=== PATIENT | male | born 1990 | race African-American/Black ===

== ENCOUNTER 2020-07-30 21:14 | Emergency (ER) | payer SELFPAY ==
[2020-07-30 22:43] LABS: Absolute Lymphocytes (CBC) 3.5 K/uL (0.7-4.9); Basophils % 0.7 % (0-1.3); Hematocrit 38.6 % (39.6-49.0); Lymphocytes % 40.7 % (15.3-44.8); MPV 8.5 fL (7.6-11.3); RBC Red Blood Cell Count 5.08 M/uL (4.33-5.43)
[2020-07-30 22:44] LABS: Protime INR 1.04
[2020-07-30 22:52] LABS: Barbiturates NEGATIVE (NEGATIVE); Benzodiazepines NEGATIVE (NEGATIVE); Cocaine NEGATIVE (NEGATIVE); METHAMPHETAM NEGATIVE (NEGATIVE); Methadone NEGATIVE (NEGATIVE); Opiates NEGATIVE (NEGATIVE); Phencyclidine NEGATIVE (NEGATIVE); THC Cannibis NEGATIVE (NEGATIVE)
[2020-07-30 22:55] LABS: ALT/SGPT 41 U/L (12-78); AST/SGOT 16 U/L (15-37); Albumin 3.6 g/dL (3.4-5.0); Alkaline Phosphatase 67 U/L (45-117); BUN Blood Urea Nitrogen 11 mg/dL (7-18); Bicarbonate 29 mmol/L (21-32); Bilirubin Direct < 0.1 mg/dL (0-0.2); Bilirubin Total 0.2 mg/dL (0.2-1.0); Glucose Level 86 mg/dL (74-106); Potassium 3.9 mmol/L (3.5-5.1); Protein, Total 7.7 g/dL (6.4-8.2); Sodium Level 142 mmol/L (136-145); Troponin (Emerg Dept Use Only) < 0.02 ng/mL (0.0-0.045)
--- NOTE | 2020-07-30 23:56 | EDPHYS ---
Physician Documentation [facility] Brian Name: Gal Lam Age: 30 yrs Sex: Male : 1990 Arrival Date: 07/30/2020 Time: 21:17 Bed 13 Private MD: ED Physician Ana Paula Jaimes HPI: 07/30 21:55 This 30 yrs old Black Male presents to ER via Ambulatory with complaints of High Blood cp Pressure. 21:55 The patient has elevated blood pressure and discovered this at home, with a home device.cp 21:55 Onset: The symptoms/episode began/occurred 2 day(s) ago. cp 21:55 Associated signs and symptoms: Pertinent positives: right side chest pain, Pertinent cp negatives: dizziness, headache, visual changes, vomiting, weakness. 21:55 Severity of symptoms: in the emergency department the blood pressure is improved, cp moderately. Patient reports taking 's blood pressure medication prior to arrival. Historical: - Allergies: 21:27 No Known Allergies; jb4 - Home Meds: 21:27 None [Active]; jb4 - PMHx: 21:27 None; jb4 - PSHx: 21:27 None; jb4 - Immunization history:: Adult Immunizations not up to date. - Social history:: Smoking status: Patient denies any tobacco usage or history of. Patient uses alcohol, occasionally. Patient/guardian denies using street drugs. ROS: 22:00 Constitutional: Negative for body aches, chills, fever, poor PO intake. cp 22:00 Eyes: Negative for injury, pain, redness, and discharge. cp 22:00 Cardiovascular: Positive for chest pain, of the right side chest, Negative for edema, cp palpitations. 22:00 Respiratory: Negative for cough, shortness of breath, wheezing. cp 22:00 Abdomen/GI: Negative for abdominal pain, nausea, vomiting, and diarrhea. 22:00 Back: Negative for pain at rest, pain with movement, radiated pain. 22:00 Neuro: Negative for altered mental status, dizziness, headache, syncope, weakness. 22:00 All other systems are negative. Exam: 22:05 Constitutional: The patient appears in no acute distress, alert, awake, cp non-diaphoretic, non-toxic, well developed, well nourished, obese. 22:05 Head/Face: Normocephalic, atraumatic. cp 22:05 Eyes: Periorbital structures: appear normal, Conjunctiva: normal, no exudate, no injection, Sclera: no appreciated abnormality, Lids and lashes: appear normal, bilaterally. 22:05 ENT: External ear(s): are unremarkable, Nose: is normal, Mouth: Lips: moist, Oral mucosa: pink and intact, moist, Posterior pharynx: is normal, airway is patent, no erythema, no exudate. 22:05 Neck: ROM/movement: is normal, is supple, without pain, no range of motions limitations. 22:05 Chest/axilla: Inspection: normal, Palpation: is normal, no crepitus, no tenderness. 22:05 Cardiovascular: Rate: normal, Rhythm: regular, Heart sounds: murmur, not appreciated, Edema: is not appreciated, JVD: is not appreciated. 22:05 Respiratory: the patient does not display signs of respiratory distress, Respirations: normal, no use of accessory muscles, no retractions, labored breathing, is not present, Breath sounds: are clear throughout, no decreased breath sounds, no stridor, no wheezing. 22:05 Abdomen/GI: Inspection: abdomen appears normal, Palpation: abdomen is soft and non-tender, in all quadrants. 22:05 Back: pain, is absent, ROM is normal. 22:05 Neuro: Orientation: to person, place \T\ time. Mentation: is normal, Cerebellar function: is grossly normal, Motor: moves all fours, strength is normal, Sensation: is normal. 22:07 ECG was reviewed by the Attending Physician. cp Vital Signs: 21:22 BP 143 / 69; Pulse 85; Resp 16; Temp 99.0(TE); Pulse Ox 99% on R/A; Weight 122.47 kg jb4 (R); Height 5 ft. 8 in. (172.72 cm); Pain 5/10; 21:46 BP 133 / 84; Pulse 89; Resp 16; Pulse Ox 98% ; sf 22:00 BP 122 / 78; Pulse 78; Resp 16; Pulse Ox 97% ; sf 22:30 BP 124 / 86; Pulse 83; Resp 16; Pulse Ox 96% ; sf 07/31 00:33 BP 128 / 84; Pulse 75; Resp 16; Pulse Ox 96% ; sf 07/30 21:22 Body Mass Index 41.05 (122.47 kg, 172.72 cm) jb4 MDM: 07/30 21:48 Patient medically screened. cp 22:00 Differential diagnosis: hypertensive crisis, Malignant HTN, CVA, intracerebral cp hemorrhage, acute IA, cardiac arrythmia, kidney disease. 23:54 Data reviewed: vital signs, nurses notes, lab test result(s), EKG, radiologic studies, cp plain films. 23:54 Test interpretation: by ED physician or midlevel provider: ECG, plain radiologic cp studies, chest xray negative for infiltrates. Counseling: I had a detailed discussion with the patient and/or guardian regarding: the historical points, exam findings, and any diagnostic results supporting the discharge/admit diagnosis, the presence of at least one elevated blood pressure reading (>120/80) during this emergency department visit, lab results, radiology results, the need for outpatient follow up, for definitive care, a family practitioner. Response to treatment: VSS. Blood pressure improved. Will discharge to home for continued monitoring. 07/30 21:49 Order name: Basic Metabolic Panel cp 07/30 21:49 Order name: CBC with Diff cp 07/30 21:49 Order name: LFT's cp 07/30 21:49 Order name: Magnesium; Complete Time: 23:14 cp 07/30 21:49 Order name: PT-INR; Complete Time: 23:14 cp 07/30 21:49 Order name: Troponin (emerg Dept Use Only); Complete Time: 23:14 cp 07/30 23:42 Interpretation: Within normal limits: TROPED < 0.02. cp 07/30 21:49 Order name: XRAY Chest (1 view) cp 07/30 21:49 Order name: EKG; Complete Time: 21:50 cp 07/30 21:49 Order name: Cardiac monitoring; Complete Time: 22:21 cp 07/30 21:49 Order name: UDS; Complete Time: 23:14 cp 07/30 21:50 Order name: Basic Metabolic Panel; Complete Time: 23:14 EDMS 07/30 23:14 Interpretation: Reviewed. cp 07/30 21:50 Order name: CBC with Automated Diff; Complete Time: 23:14 EDMS 07/30 23:14 Interpretation: Normal except: HGB 12.7; HCT 38.6; MCV 75.9; MCH 25.0. cp 07/30 21:50 Order name: Liver (Hepatic) Function; Complete Time: 23:14 EDMS 07/30 23:14 Interpretation: Normal except: GLOB 4.1; A/G 0.9. cp 07/30 22:36 Order name: Urine Dipstick--Ancillary (enter results) tt3 07/30 21:49 Order name: EKG - Nurse/Tech; Complete Time: 22:05 cp 07/30 21:49 Order name: IV Saline Lock; Complete Time: 22:14 cp 07/30 21:49 Order name: Labs collected and sent; Complete Time: 22:14 cp 07/30 21:49 Order name: O2 Per Protocol; Complete Time: 22:21 cp 07/30 21:49 Order name: O2 Sat Monitoring; Complete Time: 22:21 cp 07/30 21:49 Order name: Urine Dipstick-Ancillary (obtain specimen); Complete Time: 22:36 cp EC:07 Rate is 80 beats/min. Rhythm is regular. WA interval is normal. QRS interval is normal. cp QT interval is normal. T waves are Inverted in leads III, aVR. Interpreted by me. Reviewed by me. Administered Medications: No medications were administered Disposition: 07/31 04:27 Co-signature as Attending Physician, Ana Paula Jaimes MD. ma2 Disposition: 07/30/20 23:55 Discharged to Home. Impression: Elevated blood-pressure reading, without diagnosis of hypertension, Other chest pain. - Condition is Stable. - Discharge Instructions: Nonspecific Chest Pain, How to Take Your Blood Pressure, [id number]-io-[id number], Aspirin and Your Heart, Form - Blood Pressure Record Sheet. - Medication Reconciliation Form, Thank You Letter, Antibiotic Education, Prescription Opioid Use form. - Follow up: Private Physician; When: 1 - 2 days; Reason: Recheck today's complaints. - Problem is new. - Symptoms have improved. Signatures: Dispatcher [employer] EDMN Quincy Patel PA PA cp Bryson, James, RN RN jb4 Ana Paula Jaimes MD MD ma2 Anup Arroyo RN RN sf Corrections: (The following items were deleted from the chart) 07/30 22:28 21:50 This 30 yrs old Black Male presents to ER via Ambulatory with complaints of High cp Blood Pressure. cp 22:28 21:50 The patient has elevated blood pressure and discovered this at home, with a home cp device, cp 07/31 00:35 07/30 23:55 07/30/2020 23:55 Discharged to Home. Impression: Elevated blood-pressure sf reading, without diagnosis of hypertension; Other chest pain. Condition is Stable. Forms are Medication Reconciliation Form, Thank You Letter, Antibiotic Education, Prescription Opioid Use. Follow up: Private Physician; When: 1 - 2 days; Reason: Recheck today's complaints. Problem is new. Symptoms have improved. cp
--- NOTE | 2020-07-30 23:56 | ER ---
Nurse's Notes [facility] Brian Name: Gal Lam Age: 30 yrs Sex: Male : 1990 Arrival Date: 07/30/2020 Time: 21:17 Bed 13 Private MD: Diagnosis: Elevated blood-pressure reading, without diagnosis of hypertension;Other chest pain Presentation: 07/30 21:22 Chief complaint: Patient states: My blood pressure was high 2 days ago. It has been jb4 going up and down. My gave me one of her pills to help and it went down but is back up. It is getting out of control, and i noticed the right side of my chest has been hurting. Coronavirus screen: Client denies travel out of the [place] in the last 14 days. At this time, the client does not indicate any symptoms associated with coronavirus-19. Ebola Screen: Patient negative for fever greater than or equal to 101.5 degrees Fahrenheit, and additional compatible Ebola Virus Disease symptoms. Initial Sepsis Screen: Does the patient meet any 2 criteria? No. Patient's initial sepsis screen is negative. Does the patient have a suspected source of infection? No. Patient's initial sepsis screen is negative. Risk Assessment: Do you want to hurt yourself or someone else? Patient reports no desire to harm self or others. Onset of symptoms was July 28, 2020. Transition of care: patient was not received from another setting of care. 21:22 Method Of Arrival: Ambulatory jb4 21:22 Acuity: ALEXANDRO 3 jb4 Historical: - Allergies: 21:27 No Known Allergies; jb4 - Home Meds: 21:27 None [Active]; jb4 - PMHx: 21:27 None; jb4 - PSHx: 21:27 None; jb4 - Immunization history:: Adult Immunizations not up to date. - Social history:: Smoking status: Patient denies any tobacco usage or history of. Patient uses alcohol, occasionally. Patient/guardian denies using street drugs. Screenin:46 Abuse screen: Denies threats or abuse. Denies injuries from another. Nutritional sf screening: No deficits noted. Tuberculosis screening: No symptoms or risk factors identified. Never had TB. Possible symptoms: None Risk factors: None. Fall Risk None identified. No fall in past 12 months (0 pts). No secondary diagnosis (0 pts). Ambulatory Aid- None/Bed Rest/Nurse Assist (0 pts). Gait- Normal/Bed Rest/Wheelchair (0 pts) Mental Status- Oriented to own ability (0 pts). Total Jones Fall Scale indicates No Risk (0-24 pts). Assessment: 21:44 General: Appears in no apparent distress. comfortable, Behavior is calm, cooperative, sf appropriate for age, Denies feeling ill. Pain: Pain currently is 4 out of 10 on a pain scale. Neuro: No deficits noted. Level of Consciousness is awake, alert, obeys commands, Oriented to person, place, time, situation, Appropriate for age Denies weakness blurred vision dizziness, headache. Cardiovascular: Reports chest pain, intermittently Patient's skin is warm and dry. Respiratory: No deficits noted. Airway is patent Respiratory effort is even, unlabored, Respiratory pattern is regular, symmetrical. 23:23 Reassessment: Patient appears in no apparent distress at this time. No changes from sf previously documented assessment. Patient and/or family updated on plan of care and expected duration. Pain level reassessed. Patient is alert, oriented x 3, equal unlabored respirations, skin warm/dry/pink. Vital Signs: 21:22 BP 143 / 69; Pulse 85; Resp 16; Temp 99.0(TE); Pulse Ox 99% on R/A; Weight 122.47 kg jb4 (R); Height 5 ft. 8 in. (172.72 cm); Pain 5/10; 21:46 BP 133 / 84; Pulse 89; Resp 16; Pulse Ox 98% ; sf 22:00 BP 122 / 78; Pulse 78; Resp 16; Pulse Ox 97% ; sf 22:30 BP 124 / 86; Pulse 83; Resp 16; Pulse Ox 96% ; sf 07/31 00:33 BP 128 / 84; Pulse 75; Resp 16; Pulse Ox 96% ; sf 07/30 21:22 Body Mass Index 41.05 (122.47 kg, 172.72 cm) jb4 ED Course: 07/30 21:17 Patient arrived in ED. am4 21:26 Triage completed. jb4 21:27 Arm band placed on right wrist. jb4 21:31 Quincy Patel PA is PHCP. cp 21:31 Ana Paula Jaimes MD is Attending Physician. cp 21:39 Anup Arroyo, RN is Primary Nurse. sf 21:47 Patient has correct armband on for positive identification. Bed in low position. Call sf light in reach. Side rails up X 1. Pulse ox on. NIBP on. Door closed. Noise minimized. Lights dimmed. Verbal reassurance given. 22:02 EKG done, by ED staff. sf 22:05 Initial lab(s) drawn, by in, sent to lab. Inserted saline lock: 20 gauge in left em antecubital area, using aseptic technique. Blood collected. 22:14 XRAY Chest (1 view) In Process Unspecified. EDMS 22:25 Urine collected: clean catch specimen, clear. sf 23:20 Basic Metabolic Panel Sent. sf 23:20 CBC with Diff Sent. sf 23:20 LFT's Sent. sf 07/31 00:34 No provider procedures requiring assistance completed. IV discontinued, intact, sf bleeding controlled, No redness/swelling at site. Pressure dressing applied. Administered Medications: No medications were administered Outcome: 07/30 23:55 Discharge ordered by MD. 07/31 00:34 Discharged to home ambulatory. sf Condition: stable Discharge instructions given to patient, Instructed on discharge instructions, follow up and referral plans. Demonstrated understanding of instructions, follow-up care. 00:35 Patient left the ED. sf Signatures: Dispatcher [employer] Filiberto Avila, RN RN Quincy Nesbitt PA PA cp Bryson, James, CONSTANCE ba4 Annabelle Fowler am4 Anup Arroyo, RN RN sf
[2020-07-31 00:40] VITALS: TEMP 99
[2020-07-31 00:43] VITALS: O2SAT 96
[2020-07-31 00:44] VITALS: BP 128/84
[2020-07-31 01:19] LABS: Urine Blood NEGATIVE (NEG); Urine Glucose NEGATIVE (NEG); Urine Protein NEGATIVE (NEG); Urine Specific Gravity >1.030 (1.005-1.030)
--- NOTE | 2020-07-31 08:46 | RAD REPORT ---
EXAM DESCRIPTION: RAD - Chest Single View - 07/30/2020 10:14 pm CLINICAL HISTORY: CHEST PAIN Chest pain. COMPARISON: Chest Single View dated 01/07/2016 FINDINGS: Portable technique limits examination quality. The lungs are grossly clear. The heart is normal in size. No displaced fractures. IMPRESSION: No acute intrathoracic process suspected.
== END 2020-07-31 00:35 | disposition home or self-care (01) ==
LOC: ER 21:14
DX: R03.0 Elevated blood-pressure reading, without diagnosis of hypertension (principal); R07.9 Chest pain, unspecified
CPT/HCPCS: 36415; 71045; 80048; 80076; 80307; 81003; 83735; 84484; 85025; 85610; 93005; 99284

== ENCOUNTER 2021-10-13 16:52 | Emergency (ER) | payer SELFPAY ==
--- OUTSIDE RECORDS SUMMARY | 2021-10-13 16:55 | XMS REPORT | Continuity of Care Document ---
:1990 Author Organization [facility] t Address [address] [place] [address] Care Team Providers Name Role Phone [place] Attending Clinician Unavailable Problems This patient has no known problems. Allergies, Adverse Reactions, Alerts This patient has no known allergies or adverse reactions. Medications This patient has no known medications. Procedures This patient has no known procedures. Encounters Start End Encounter Admission Attending Care Care Encounter Source Date/Time Date/Time Type Type Clinicians Facility Department ID 2021-07-15 Outpatient Pratima [facility] [id number] [facility] 12:31:34 [facility] [id number] [facility] 2021-07-15 Outpatient JANET Andujar [facility] [id number] [address] 12:31:19 [facility] [id number] [facility] 2020-08-09 2020-08-09 Outpatient [facility] [id number] [facility] 2019-04-03 2019-04-03 [facility] [id number] [facility] [address] 10:36:00 10:36:00 [facility] Clin[facility] 2019-03-29 2019-03-29 [facility] [id number] [facility] 14:21:00 14:21:00 [facility] Medicine Out[facility] Clinics 2019-03-15 2019-03-15 [facility] [id number] [facility] [address] 11:40:00 11:40:00 [facility] 2019-02-16 2019-02-16 Outpatient Sofia Torres [id number] [facility] [address] 14:09:00 14:09:00 [facility] ent Clinics 2019-02-15 2019-02-15 Outpatient Sofia Torres [id number] [facility] [address] 09:00:00 09:00:00 [facility] ent Clinics Results This patient has no known results.
[2021-10-13] MEDS ORDERED: NA CHLORIDE 0.9% 1,000 ML ONE (17:29)
[2021-10-13 17:48] LABS: Absolute Lymphocytes (CBC) 2.7 K/uL (0.7-4.9); Hematocrit 41.4 % (39.6-49.0); Lymphocytes % 29.8 % (15.3-44.8); RBC Red Blood Cell Count 5.42 M/uL (4.33-5.43)
[2021-10-13 17:51] LABS: Protime INR 1.18
[2021-10-13 18:06] LABS: ALT/SGPT 40 U/L (12-78); AST/SGOT 14 U/L (15-37); Albumin 2.8 g/dL (3.4-5.0); Alkaline Phosphatase 49 U/L (45-117); BUN Blood Urea Nitrogen 8 mg/dL (7-18); Bicarbonate 26 mmol/L (21-32); Bilirubin Total 0.3 mg/dL (0.2-1.0); Glucose Level 97 mg/dL (74-106); Lipase 35 U/L (73-393); Protein, Total 6.3 g/dL (6.4-8.2); Sodium Level 139 mmol/L (136-145)
--- NOTE | 2021-10-13 18:30 | RAD REPORT ---
EXAM DESCRIPTION: CTAbdomen Pelvis W Contrast - 10/13/2021 6:21 pm CLINICAL HISTORY: Abdominal pain, acute, nonlocalized COMPARISON: No comparisons TECHNIQUE: CT of the abdomen and pelvis was performed. All CT scans are performed using dose optimization technique as appropriate and may include automated exposure control or mA/KV adjustment according to patient size. FINDINGS: Lower chest: No acute abnormality. Liver: No acute abnormality or suspicious lesions. Biliary: No biliary ductal dilatation. Stomach: No significant focal abnormality. Duodenum: No significant focal abnormality. Pancreas: No significant abnormality. Spleen: No significant abnormality. Adrenal: No suspicious lesions. Kidney/ureter: No hydronephrosis. No renal calculi. Retroperitoneum: No retroperitoneal adenopathy. Vascular: No aneurysm. Bowel: Diffuse colonic wall thickening consistent with a pancolitis. Normal appendix.. Peritoneum: No ascites or free air. Bladder: Grossly unremarkable. Reproductive: No adnexal masses. Bones: No acute fracture. Other: n/a IMPRESSION: Pancolitis either secondary to infectious or inflammatory etiologies. No bowel obstructi on. Normal appendix.
[2021-10-13] MEDS ORDERED: POTASSIUM 25 MEQ EFFERV TAB ONE (18:52)
[2021-10-13] MEDS ORDERED: CIPROFLOXACIN HCL 500 MG TAB ONE (19:06)
[2021-10-13] MEDS ORDERED: METRONIDAZOLE 500mg IVPB 500 MG/100 ML BAG IV ONE (19:06)
--- NOTE | 2021-10-13 19:18 | ER ---
Nurse's Notes [facility] Brian Name: Gal Lam Age: 31 yrs Sex: Male : 1990 Arrival Date: 10/13/2021 Time: 16:56 Bed 14 Private MD: Diagnosis: Indeterminate colitis;Hypokalemia Presentation: 10/13 16:56 Chief complaint: Patient states: ABD pain and diarrhea for a couple of weeks. States vg1 hasnt had a solid BM in two weeks. Denies [place]. Coronavirus screen: Vaccine status: Patient reports receiving the 2nd dose of the covid vaccine. Client denies travel out of the [place] in the last 14 days. Ebola Screen: Patient denies exposure to infectious person. Patient denies travel to an Ebola-affected area in the 21 days before illness onset. Initial Sepsis Screen: Does the patient meet any 2 criteria? No. Patient's initial sepsis screen is negative. Does the patient have a suspected source of infection? No. Patient's initial sepsis screen is negative. Risk Assessment: Do you want to hurt yourself or someone else? Patient reports no desire to harm self or others. Onset of symptoms was September 29, 2021. 16:56 Method Of Arrival: Ambulatory [facility] 16:56 Acuity: ALEXANDRO 3 vg1 Triage Assessment: 16:59 General: Appears uncomfortable, Behavior is cooperative. Pain: Complains of pain in vg1 abdomen Pain currently is 0 out of 10 on a pain scale. at worst was 8 out of 10 on a pain scale. GI: Reports lower abdominal pain, upper abdominal pain, diarrhea. Historical: - Allergies: 16:59 No Known Allergies; vg1 - Home Meds: 16:59 None [Active]; vg1 - PMHx: 16:59 None; vg1 - PSHx: 16:59 None; vg1 - Immunization history:: Client reports receiving the 2nd dose of the Covid vaccine. - Social history:: Smoking status: Patient denies any tobacco usage or history of. Screenin:35 Abuse screen: Denies threats or abuse. Denies injuries from another. Nutritional jg9 screening: No deficits noted. Tuberculosis screening: No symptoms or risk factors identified. Fall Risk None identified. Assessment: 17:35 Reassessment: No changes from previously documented assessment. Patient is alert, jg9 oriented x 3, equal unlabored respirations, skin warm/dry/pink. GI: Bowel sounds present X 4 quads. Abd is soft and non tender X 4 quads. Reports lower abdominal pain, upper abdominal pain, diarrhea. 18:32 Reassessment: No changes from previously documented assessment. Patient is alert, jg9 oriented x 3, equal unlabored respirations, skin warm/dry/pink. 20:22 Reassessment: No changes from previously documented assessment. Patient and/or family sm5 updated on plan of care and expected duration. Pain level reassessed. Vital Signs: 16:56 BP 129 / 82; Pulse 95; Resp 16; Temp 99.4(O); Pulse Ox 100% ; Weight 104.33 kg; Height vg1 5 ft. 8 in. (172.72 cm); Pain 8/10; 17:15 BP 123 / 71; Pulse 96; Resp 14 S; Pulse Ox 98% on R/A; Pain 0/10; jg9 18:26 BP 120 / 75; Pulse 86; Resp 14 S; Pulse Ox 98% on R/A; jg9 20:21 BP 118 / 81; Pulse 90; Resp 16; Pulse Ox 96% on R/A; sm5 16:56 Body Mass Index 34.97 (104.33 kg, 172.72 cm) vg1 ED Course: 16:56 Patient arrived in ED. vg1 16:57 Quincy Patel PA is PHCP. cp 16:57 Alex Oneil MD is Attending Physician. cp 16:59 Triage completed. vg1 16:59 Arm band placed on. vg1 17:02 Paige Downs, CONSTANCE is Primary Nurse. jg9 17:36 Pt visited by . jg9 17:36 Patient has correct armband on for positive identification. Bed in low position. Call j9 light in reach. Side rails up X 1. 17:37 Inserted saline lock: 20 gauge in right antecubital area, using aseptic technique. zm Blood collected. 17:38 Lipase Sent. zm 17:38 CMP Sent. zm 17:38 CBC with Diff Sent. zm 18:23 CT Abd/Pelvis - IV Contrast Only In Process Unspecified. EDMS 18:32 No apparent distress. Resting quietly. Pt visited by . 9 18:32 Awaiting lab results, Awaiting radiology results. Awaiting disposition. jg9 19:16 Perry Solis MD is Referral Physician. cp 20:22 No provider procedures requiring assistance completed. IV discontinued, intact, sm5 bleeding controlled, No redness/swelling at site. Pressure dressing applied. Administered Medications: 17:37 Drug: NS 0.9% 1000 ml Route: IV; Rate: 1 bolus; Site: right antecubital; jg9 20:21 Follow up: IV Status: Completed infusion; IV Intake: 1000ml 5 18:51 Drug: Potassium Effervescent Tablet 50 mEq Route: PO; jg9 19:09 Drug: metroNIDAZOLE 500 mg Volume: 100 ml; Route: IVPB; Infused Over: 30 mins; [place] [facility] [place]; 20:21 Follow up: IV Status: Completed infusion; IV Intake: 100ml 5 19:09 Drug: Cipro (ciprofloxacin) 500 mg Route: PO; jg9 Intake: 20:21 IV: 100ml; Total: 100ml. sm5 20:21 IV: 1000ml; Total: 1100ml. 5 Outcome: 19:18 Discharge ordered by MD. cp 20:22 Discharged to home ambulatory, with family. 5 20:22 Condition: stable 20:22 Discharge instructions given to patient, family, Instructed on discharge instructions, follow up and referral plans. no drinking with medication, medication usage, Demonstrated understanding of instructions, follow-up care, medications, Prescriptions given X 4. 20:22 Patient left the ED. 5 Signatures: Dispatcher [employer] EDMS Quincy Patel PA PA cp Garcia, Victoria RN RN vg1 Maria A Lee RN RN 5 Paige Downs RN RN jg9 Radha Fowler Corrections: (The following items were deleted from the chart) 18:46 17:38 UA MICROSCOPIC+U.LAB.BRZ drawn and sent. EDFL
--- NOTE | 2021-10-13 19:18 | EDPHYS ---
Physician Documentation [facility] Brian Name: Gal Carrier Age: 31 yrs Sex: Male : 1990 Arrival Date: 10/13/2021 Time: 16:56 Bed 14 Private MD: ED Physician Alex Oneil HPI: 10/13 17:30 This 31 yrs old Black Male presents to ER via Ambulatory with complaints of Abdominal cp Pain, Diarrhea. 17:30 The patient presents with abdominal pain in the upper abdomen, in the lower abdomen, cp abdominal distention in the upper abdomen, in the lower abdomen. Onset: The symptoms/episode began/occurred 2 week(s) ago. Associated signs and symptoms: Pertinent positives: diarrhea, black stools, Pertinent negatives: constipation, fever, shortness of breath, testicular pain, vomiting. The symptoms are described as crampy. Historical: - Allergies: 16:59 No Known Allergies; vg1 - Home Meds: 16:59 None [Active]; vg1 - PMHx: 16:59 None; vg1 - PSHx: 16:59 None; vg1 - Immunization history:: Client reports receiving the 2nd dose of the Covid vaccine. - Social history:: Smoking status: Patient denies any tobacco usage or history of. ROS: 17:33 Constitutional: Negative for body aches, chills, fever, poor PO intake. cp 17:33 Eyes: Negative for injury, pain, redness, and discharge. cp 17:33 ENT: Negative for drainage from ear(s), ear pain, sore throat, difficulty swallowing, difficulty handling secretions. 17:33 Cardiovascular: Negative for chest pain, edema, palpitations. 17:33 Respiratory: Negative for cough, shortness of breath, wheezing. 17:33 Abdomen/GI: Positive for abdominal pain, diarrhea, abdominal cramps, black, watery stools, Negative for vomiting, constipation. 17:33 Back: Negative for pain at rest, pain with movement. 17:33 : Negative for urinary symptoms, testicular pain 17:33 Neuro: Negative for altered mental status, dizziness, headache, syncope, weakness. 17:33 All other systems are negative. Exam: 17:37 Constitutional: The patient appears in no acute distress, alert, awake, cp non-diaphoretic, non-toxic, well developed, well nourished, obese. 17:37 Head/Face: Normocephalic, atraumatic. cp 17:37 Eyes: Periorbital structures: appear normal, Conjunctiva: normal, no exudate, no injection, Sclera: no appreciated abnormality, Lids and lashes: appear normal, bilaterally. 17:37 ENT: External ear(s): are unremarkable, Nose: is normal, Mouth: Lips: moist, Oral mucosa: pink and intact, moist, Posterior pharynx: Airway: no evidence of obstruction, patent. 17:37 Chest/axilla: Inspection: normal. 17:37 Cardiovascular: Rate: normal, Rhythm: regular. 17:37 Respiratory: the patient does not display signs of respiratory distress, Respirations: normal, no use of accessory muscles, no retractions, labored breathing, is not present, Breath sounds: are clear throughout, no decreased breath sounds, no stridor, no wheezing. 17:37 Abdomen/GI: Inspection: abdomen appears normal, Bowel sounds: active, all quadrants, cp Palpation: soft, in all quadrants, mild abdominal tenderness, in the abdomen diffusely, rebound tenderness, is not appreciated, voluntary guarding, is not appreciated, involuntary guarding, is not appreciated. 17:37 Back: pain, is absent, ROM is normal. 17:37 Skin: no rash present. cp 17:37 Neuro: Orientation: to person, place \T\ time. Mentation: is normal, Motor: moves all fours, strength is normal. Vital Signs: 16:56 BP 129 / 82; Pulse 95; Resp 16; Temp 99.4(O); Pulse Ox 100% ; Weight 104.33 kg; Height vg1 5 ft. 8 in. (172.72 cm); Pain 8/10; 17:15 BP 123 / 71; Pulse 96; Resp 14 S; Pulse Ox 98% on R/A; Pain 0/10; jg9 18:26 BP 120 / 75; Pulse 86; Resp 14 S; Pulse Ox 98% on R/A; jg9 20:21 BP 118 / 81; Pulse 90; Resp 16; Pulse Ox 96% on R/A; sm5 16:56 Body Mass Index 34.97 (104.33 kg, 172.72 cm) vg1 MDM: 17:08 Patient medically screened. cp 19:18 Data reviewed: vital signs, nurses notes, lab test result(s), radiologic studies, CT cp scan. 19:18 Differential diagnosis: appendicitis, bowel obstruction, cholecystitis, Cholelithiasis, cp diverticulitis, gastritis, pancreatitis, Ureterolithiasis, urinary tract infection, colitis. 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 Response to treatment: the patient's symptoms have mildly improved after treatment, and as a result, I will discharge patient. 10/13 17:21 Order name: CBC with Diff; Complete Time: 18:40 cp 10/13 18:40 Interpretation: Normal except: MCV 76.4; MCH 25.6. cp 10/13 17:21 Order name: CMP; Complete Time: 18:40 cp 10/13 18:40 Interpretation: Normal except: K 3.0; CL 109. cp 10/13 17:21 Order name: Lipase; Complete Time: 18:40 cp 10/13 17:21 Order name: PT-INR; Complete Time: 18:40 cp 10/13 17:21 Order name: Stool Culture 10/13 17:21 Order name: CT Abd/Pelvis - IV Contrast Only; Complete Time: 18:40 cp 10/13 18:40 Interpretation: Report reviewed. 10/13 17:21 Order name: IV Saline Lock; Complete Time: 17:37 cp 10/13 17:21 Order name: Ova And Parasites cp 10/13 17:21 Order name: Rotavirus Antigen cp 10/13 17:21 Order name: Labs collected and sent; Complete Time: 17:37 cp Administered Medications: 17:37 Drug: NS 0.9% 1000 ml Route: IV; Rate: 1 bolus; Site: right antecubital; jg9 20:21 Follow up: IV Status: Completed infusion; IV Intake: 1000ml sm5 18:51 Drug: Potassium Effervescent Tablet 50 mEq Route: PO; jg9 19:09 Drug: metroNIDAZOLE 500 mg Volume: 100 ml; Route: IVPB; Infused Over: 30 mins; Site: j9 right antecubital; 20:21 Follow up: IV Status: Completed infusion; IV Intake: 100ml sm5 19:09 Drug: Cipro (ciprofloxacin) 500 mg Route: PO; jg9 Disposition Summary: 10/13/21 19:18 Discharge Ordered Location: Home cp Problem: new cp Symptoms: have improved cp Condition: Stable cp Diagnosis - Indeterminate colitis cp - Hypokalemia cp Followup: cp - With: Perry Solis MD - When: 2 - 3 days - Reason: Recheck today's complaints Discharge Instructions: - Discharge Summary Sheet cp - Hypokalemia cp - Colitis cp Forms: - Medication Reconciliation Form cp - Thank You Letter cp - Antibiotic Education cp - Prescription Opioid Use cp Prescriptions: - Zofran 4 mg Oral Tablet - take 1 tablet by ORAL route every 12 hours As needed; 20 tablet; Refills: 0, cp Product Selection Permitted - Cipro 500 mg Oral Tablet - take 1 tablet by ORAL route every 12 hours for 10 days; 20 tablet; Refills: 0, cp Product Selection Permitted - Potassium Chloride 10 mEq Oral capsule, extended release - take 1 tablet by ORAL route every 12 hours for 5 days; 10 tablet; Refills: 0, cp Product Selection Permitted - Metronidazole 500 mg Oral Tablet - take 1 tablet by ORAL route every 8 hours; 30 tablet; Refills: 0, Product cp Selection Permitted - dicyclomine 20 mg Oral Tablet - take 1 tablet by ORAL route 4 times per day; 30 tablet; Refills: 0, Product cp Selection Permitted Signatures: Dispatcher [employer] EDMS Quincy Patel PA PA cp Garcia, Victoria RN RN vg1 Paige Downs RN RN jg9 Maria A Lee RN sm5 Corrections: (The following items were deleted from the chart) 18:46 17:22 UA MICROSCOPIC+U.LAB.BRZ ordered. EDMS EDMS
[2021-10-13 22:55] VITALS: TEMP 99.4
[2021-10-13 23:01] VITALS: BP 118/81; O2SAT 96
== END 2021-10-13 20:22 | disposition home or self-care (01) ==
LOC: ER 16:52
DX: K52.3 Indeterminate colitis (principal); E87.6 Hypokalemia
CPT/HCPCS: 36415; 74177; 80053; 83690; 85025; 85610; 87045; 87046; 87177; 87209; 87425; 96361; 96365; 99284; J7030; Q9967

== ENCOUNTER 2023-06-21 14:31 | Inpatient (IN) | payer SELFPAY ==
--- OUTSIDE RECORDS SUMMARY | 2023-06-21 14:34 | XMS REPORT | Continuity of Care Document ---
Author Name Unknown Address [address] [facility] [address] [place] [address] [facility] Address [address] [facility] [address] [place] [address] Care Team Providers Care X Ray Inspector Name Role Phone Nettie Andujar Attending Clinician Unavailable Problems Condition Name Condition Details Condition Category Status Onset Date Resolution Date Last Treatment Date Treating Clinician Comments Source [id number] Obesity, Class III, BMI 40-49.9 (morbid obesity) Problem Active [facility] [id number] Obstructiv e sleep apnea syndrome Problem Active [facility] [id number] Fatigue, unspecifie d type Problem Active [facility] [id number] Adult general medical exam Problem Active [facility] Social History Social Habit Start Date Stop Date Quantity Comments Source History of Tobacco Use [facility] Sex Assigned At [facility] Smoking Status Start Date Stop Date Source Never Smoker [facility] Medications Ordered Medication Name Filled Medication Name Start Date Stop Date Current Medication? Ordering Clinician Indication Dosage Frequency Signature (SIG) Comments Components Source Hydrochloro thiazide 12.5 MG Hydrochloro thiazide 12.5 MG 08-09 00:00: 00 No 1{table t_in_th e_morni ng} QD Hydrochlor othiazide 12.5 MG Vital Signs Vital Name Observation Time Observation Value Comments S ource height 2020-08-09 09:00:00 68 [in_i] Commo n [facility] weight 2020-08-09 09:00:00 273.6 [lb_av] Co mmon [facility] temperature 2020-08-09 09:00:00 97.6 [degF] Com mon [facility] bmi 2020-08-09 09:00:00 41.6 kg/m2 Commo n [facility] oximetry 2020-08-09 09:00:00 96 % [facility] respiratory rate 2020-08-09 09:00:00 16 /min [facility] blood pressure systolic 2020-08-09 09:00:00 139 mm[Hg] [facility] blood pressure diastolic 2020-08-09 09:00:00 81 mm[Hg] [facility] Encounters Start Date/Time End Date/Time Encounter Type Admission Type Attending Clinicians Care Facility Care Department Encounter ID Source 2021-07-15 12:31:34 Outpatient Nettie Andujar [facility] [id number] [facility] 2021-07-15 12:31:19 Outpatient MathenyNettie johnson [facility] [id number] [facility] 2020-08-09 00:00:00 2020-08-09 00:00:00 OFFICE VISIT EST PT LEVEL 3 [facility] [id number] [facility] 2019-04-03 10:36:00 2019-04-03 10:36:00 Outpatient [facility] [id number] [facility] 2019-03-29 14:21:00 2019-03-29 14:21:00 Outpatient [facility] [id number] [facility] 2019-03-15 11:40:00 2019-03-15 11:40:00 Outpatient [facility] [id number] [facility] 2019-02-16 14:09:00 2019-02-16 14:09:00 Outpatient [facility] [id number] [facility] 2019-02-15 09:00:00 2019-02-15 09:00:00 Outpatient [facility] [id number] [facility]
--- NOTE | 2023-06-21 16:42 | RAD REPORT ---
EXAM DESCRIPTION: US - Extremity Venous Uni Ltd - 06/21/2023 4:03 pm CLINICAL HISTORY: Pain, swelling COMPARISON: None. TECHNIQUE: Real-time sonographic evaluation of the left lower extremity deep venous system was perfo rmed. FINDINGS: Normal compressibility, flow augmentation, phasic flow and spontaneous flow is identified in the left lower extremity deep venous system. No intraluminal filling defects seen. IMPRESSION: No DVT in the left lower extremity.
[2023-06-21] MEDS ORDERED: ACETAMINOPHEN 500 MG TAB ONE (16:47)
[2023-06-21] MEDS ORDERED: NA CHLORIDE 0.9% 1,000 ML ONE ×2 (16:47→19:35)
[2023-06-21 17:32] LABS: Absolute Lymphocytes (CBC) 2.3 K/uL (0.7-4.9); Hematocrit 38.9 % (39.6-49.0); MCV 76.7 fL (80-100); MPV 7.9 fL (7.6-11.3); Platelets 256 thou/uL (152-406); RBC Red Blood Cell Count 5.07 M/uL (4.33-5.43)
[2023-06-21 17:48] LABS: Protime INR 1.51
[2023-06-21 17:56] LABS: SARS-CoV-2 Antigen Rapid Res Negative (Negative)
[2023-06-21 17:58] LABS: Albumin 3.2 g/dL (3.4-5.0); Bilirubin Total 0.4 mg/dL (0.2-1.0); Potassium 3.1 mEq/L (3.5-5.1)
--- NOTE | 2023-06-21 18:33 | EDPHYS ---
Physician Documentation [facility] Name: Gal Lam Age: 32 yrs Sex: Male : 1990 Arrival Date: 06/21/2023 Time: 14:31 Bed 3 Private MD: ED Physician Quincy Sprague HPI: 06/21 15:34 This 32 yrs old Black Male presents to ER via Ambulatory with complaints of Headache, sb4 Flu Symptoms, Rash - On leg. 15:34 Patient states he started experiencing flulike symptoms and a rash on his leg sb4 yesterday. He reports headache, fatigue, malaise, painful and red rash on his left duarte and ankle. He denies any injury to the leg or history of blood clots. Denies any smoking. 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 No chest pain or shortness of breath. Historical: - Allergies: 15:31 No Known Allergies; hb - Home Meds: 15:31 None [Active]; hb - PMHx: 15:31 None; hb - PSHx: 15:31 None; hb - Immunization history:: Adult Immunizations up to date. - Social history:: Smoking status: Patient denies any tobacco usage or history of. ROS: 15:34 Constitutional: Positive for fatigue, fever, malaise, sb4 15:34 Skin: Positive for cellulitis, erythema, swelling, of the left duarte and anterior aspect of left ankle, 15:34 Neuro: Positive for headache, 15:34 All other systems are negative, 18:33 Cardiovascular: Negative for chest pain, palpitations, and edema, sb4 Exam: 15:34 Constitutional: This is a well developed, well nourished patient who is awake, alert, sb4 and in no acute distress. Head/Face: Normocephalic, atraumatic. Eyes: Extra-ocular motions intact. Periorbital areas with no swelling, redness, or edema. ENT: Mucous membranes moist. Cardiovascular: Regular rate and rhythm with a normal S1 and S2. Respiratory: Lungs have equal breath sounds bilaterally, clear to auscultation and percussion. No rales, rhonchi or wheezes noted. No increased work of breathing, no retractions or nasal flaring. Abdomen/GI: Soft, non-tender, no distension. Neuro: Awake and alert, GCS 15, oriented to person, place, time, and situation. Motor strength 5/5 in all extremities. Sensory grossly intact. 15:34 Musculoskeletal/extremity: DVT Exam: pain, swelling, tenderness, erythema, increased warmth, of the left leg, 15:34 Skin: cellulitis, that is moderate, cellulitis left lower duarte/ankle circumferentially, streaking noted to left medial thigh, Vital Signs: 15:31 BP 164 / 88; Pulse 103; Resp 18; Temp 99.3(O); Pulse Ox 99% on R/A; Weight 113.4 kg; hb Height 5 ft. 8 in. ; Pain 8/10; 17:33 BP 138 / 89; Pulse 97; Resp 18; Pulse Ox 97% on R/A; ld1 19:53 BP 103 / 71; Pulse 88; Resp 18 S; Pulse Ox 96% on R/A; as6 15:31 Body Mass Index 38.01 (113.40 kg, 172.72 cm) hb 15:31 Pain Scale: Adult hb MDM: 15:31 Patient medically screened. jose 15:34 Differential diagnosis: covid, flu, cellulitis, DVT. sb4 18:32 Data reviewed: vital signs, nurses notes, lab test result(s), radiologic studies, and sb4 as a result, I will admit patient. Management of patient was discussed with the following: Hospitalist: Dr. Bernard. Counseling: I had a detailed discussion with the patient and/or guardian regarding the historical points, exam findings, and any diagnostic results supporting the discharge/admit diagnosis, lab results, radiology results, the need for further work-up and treatment in the hospital. 06/21 15:33 Order name: Blood Culture Adult (2) sb4 06/21 15:33 Order name: CBC with Diff; Complete Time: 17:48 sb4 06/21 15:33 Order name: CMP; Complete Time: 18:04 sb4 06/21 15:33 Order name: Lactate w/ 2H reflex if indic.; Complete Time: 17:48 sb4 06/21 15:33 Order name: Protime (+inr); Complete Time: 17:50 sb4 06/21 15:33 Order name: Ptt, Activated; Complete Time: 17:50 sb4 06/21 15:33 Order name: Procal; Complete Time: 18:04 sb4 06/21 15:33 Order name: CRP; Complete Time: 18:04 sb4 06/21 15:33 Order name: SARS RAPID; Complete Time: 17:56 sb4 06/21 15:33 Order name: Flu; Complete Time: 18:04 sb4 06/21 15:33 Order name: Extremity Venous Uni Ltd US; Complete Time: 16:45 sb4 06/21 15:33 Order name: IV Saline Lock - Large Bore; Complete Time: 17:26 sb4 06/21 15:33 Order name: Labs collected and sent; Complete Time: 17:26 sb4 Administered Medications: 17:26 Drug: Acetaminophen PO 1000 mg PO once Route: PO; ld1 20:25 Follow up: Response: No adverse reaction as6 17:26 Drug: NS 0.9% IV 1000 ml IV at 1 bolus Per protocol; 1000 mL bolus Route: IV; Rate: 1 ld1 bolus; Site: right antecubital; 20:25 Follow up: Response: No adverse reaction; IV Status: Completed infusion; IV Intake: as6 1000ml 19:47 Drug: Clindamycin IVPB 900 mg IVPB once over 30 mins; (mix in 50 mL) Route: IVPB; ha1 Infused Over: 30 mins; Site: right antecubital; 21:40 Follow up: IV Status: Completed infusion; IV Intake: 50ml rv 19:47 Drug: Potassium Chloride PO Liquid 40 mEq PO once Route: PO; ha1 20:25 Follow up: Response: No adverse reaction as6 19:47 Drug: NS 0.9% IV 1000 ml IV at 1 bolus Per protocol; 1000 mL bolus Route: IV; Rate: 1 ha1 bolus; Site: right antecubital; 20:26 Follow up: Response: No adverse reaction; IV Status: Completed infusion; IV Intake: as6 1000ml Disposition Summary: 06/21/23 18:33 Hospitalization Ordered Notes: Hospitalization Status: Inpatient Admission sb4 Provider: Taj Bernard Location: Telemetry/MedSur (Inpatient) sb4 Condition: Fair sb4 Problem: new sb4 Symptoms: are unchanged sb4 Bed/Room Type: Standard sb4 Room Assignment: 207(06/21/23 20:21) cg Diagnosis - Cellulitis and acute lymphangitis of other parts of limb sb4 Forms: - Medication Reconciliation Form sb4 - SBAR form sb4 - Leadership Thank You Letter sb4 Signatures: Dispatcher [employer] EDQuincy Alcantara MD MD cha Garcia, Cindy, RN RN cg Shayy Parker RN RN Dorothy Chi RN RN ld1 Josephine Tan RN RN ha1 Lupis Benoit, PACristoferC PACristoferC sb4 Prabhu Trvais RN Krish العلي RN as6 Corrections: (The following items were deleted from the chart) 20:21 18:33 sb4 cg
--- NOTE | 2023-06-21 18:33 | ER ---
Nurse's Notes [facility] Brian Name: Gal Lam Age: 32 yrs Sex: Male : 1990 Arrival Date: 06/21/2023 Time: 14:31 Bed 3 Private MD: Diagnosis: Cellulitis and acute lymphangitis of other parts of limb Presentation: 06/21 15:30 Chief complaint: Headache, body aches, N/V, and rash on left leg x 2 days. hb 15:31 Coronavirus screen: Client presents with at least one sign or symptom that may indicate hb coronavirus-19. Provider contacted for isolation considerations. Ebola Screen: No symptoms or risks identified at this time. Initial Sepsis Screen: Does the patient meet any 2 criteria? No. Patient's initial sepsis screen is negative. Does the patient have a suspected source of infection? No. Patient's initial sepsis screen is negative. Risk Assessment: Do you want to hurt yourself or someone else? Patient reports no desire to harm self or others. Onset of symptoms was June 20, 2023. 15:31 Method Of Arrival: Ambulatory hb 15:31 Acuity: ALEXANDRO 3 hb Triage Assessment: 21:39 Headache History: Denies prior headaches. General: Appears in no apparent distress. rv comfortable, Behavior is calm, cooperative. Pain: Pain currently is 5 out of 10 on a pain scale. Pain began suddenly, Also complains of. Historical: - Allergies: 15:31 No Known Allergies; hb - Home Meds: 15:31 None [Active]; hb - PMHx: 15:31 None; hb - PSHx: 15:31 None; hb - Immunization history:: Adult Immunizations up to date. - Social history:: Smoking status: Patient denies any tobacco usage or history of. Screenin:33 [facility] ED Fall Risk Assessment (Adult) History of falling in the last 3 months, ld1 including since admission No falls in past 3 months (0 pts). Abuse screen: Denies threats or abuse. Denies injuries from another. Nutritional screening: No deficits noted. Tuberculosis screening: No symptoms or risk factors identified. Assessment: 17:33 General: Appears in no apparent distress. comfortable, Behavior is calm, cooperative, ld1 appropriate for age. Pain: Denies pain. Neuro: Level of Consciousness is awake, alert, obeys commands, Oriented to person, place, time, situation. Cardiovascular: Capillary refill < 3 seconds Patient's skin is warm and dry. Respiratory: Airway is patent Respiratory effort is even, unlabored. GI: Abdomen is round non-distended. : No signs and/or symptoms were reported regarding the genitourinary system. EENT: No signs and/or symptoms were reported regarding the EENT system. Derm: Skin is redness and swelling to lower left leg. Musculoskeletal: No signs and/or symptoms reported regarding the musculoskeletal system. 19:45 General: Appears comfortable, Behavior is calm, cooperative. Pain: Denies pain. Neuro: ha1 Level of Consciousness is awake, alert, obeys commands, Oriented to person, place, time, situation. Cardiovascular: Capillary refill < 3 seconds Patient's skin is warm and dry. Respiratory: Airway is patent Respiratory effort is even, unlabored, Respiratory pattern is regular, symmetrical. GI: No signs and/or symptoms were reported involving the gastrointestinal system. Abdomen is round non-distended. Derm: Skin is normal, redness on the lower extremities. Vital Signs: 15:31 BP 164 / 88; Pulse 103; Resp 18; Temp 99.3(O); Pulse Ox 99% on R/A; Weight 113.4 kg; hb Height 5 ft. 8 in. ; Pain 8/10; 17:33 BP 138 / 89; Pulse 97; Resp 18; Pulse Ox 97% on R/A; ld1 19:53 BP 103 / 71; Pulse 88; Resp 18 S; Pulse Ox 96% on R/A; as6 15:31 Body Mass Index 38.01 (113.40 kg, 172.72 cm) hb 15:31 Pain Scale: Adult hb ED Course: 14:33 Patient arrived in ED. im 14:38 Lupis Benoit PA-C is PHCP. sb4 14:38 Quincy Sprague MD is Attending Physician. sb4 15:32 Triage completed. hb 15:32 Arm band placed on. hb 16:03 Extremity Venous Uni Ltd US In Process Unspecified. EDMS 17:26 Dorothy Chi, CONSTANCE is Primary Nurse. ld1 17:26 Flu Sent. ld1 17:26 SARS RAPID Sent. ld1 17:26 CRP Sent. ld1 17:26 Procal Sent. ld1 17:26 Blood Culture Adult (2) Sent. ld1 17: CBC with Diff Sent. ld1 17: CMP Sent. ld1 17: Lactate w/ 2H reflex if indic. Sent. ld1 17: Protime (+inr) Sent. ld1 17: Ptt, Activated Sent. ld1 17:33 Patient has correct armband on for positive identification. Placed in gown. Bed in low ld1 position. Call light in reach. Side rails up X2. nuclear monitoring technician on. Pulse ox on. NIBP on. Door closed. Noise minimized. Warm blanket given. 17:33 No provider procedures requiring assistance completed. Inserted saline lock: 20 gauge ld1 in right antecubital area, using aseptic technique. Blood collected. 18:33 Taj Bernard is Hospitalizing Provider. sb4 21:40 Patient admitted, IV remains in place. rv Administered Medications: 17:26 Drug: Acetaminophen PO 1000 mg PO once Route: PO; ld1 20:25 Follow up: Response: No adverse reaction as6 17:26 Drug: NS 0.9% IV 1000 ml IV at 1 bolus Per protocol; 1000 mL bolus Route: IV; Rate: 1 ld1 bolus; Site: right antecubital; 20:25 Follow up: Response: No adverse reaction; IV Status: Completed infusion; IV Intake: as6 1000ml 19:47 Drug: Clindamycin IVPB 900 mg IVPB once over 30 mins; (mix in 50 mL) Route: IVPB; ha1 Infused Over: 30 mins; Site: right antecubital; 21:40 Follow up: IV Status: Completed infusion; IV Intake: 50ml rv 19:47 Drug: Potassium Chloride PO Liquid 40 mEq PO once Route: PO; ha1 20:25 Follow up: Response: No adverse reaction as6 19:47 Drug: NS 0.9% IV 1000 ml IV at 1 bolus Per protocol; 1000 mL bolus Route: IV; Rate: 1 ha1 bolus; Site: right antecubital; 20:26 Follow up: Response: No adverse reaction; IV Status: Completed infusion; IV Intake: as6 1000ml Medication: 17:33 VIS not applicable for this client. ld1 Intake: 20:25 IV: 1000ml; Total: 1000ml. as6 20:26 IV: 1000ml; Total: 2000ml. as6 21:40 IV: 50ml; Total: 2050ml. rv Outcome: 18:33 Decision to Hospitalize by Provider. sb4 21:40 Admitted to Med/surg accompanied by tech, via wheelchair, room 223, with chart, Report rv called to TIFFANIE NOLASCO 21:40 Condition: good 21:40 Instructed on the need for admit, 21:41 Patient left the ED. rv Signatures: Dispatcher [employer] EDMS Shayy Parker, RN RN Prabhu Travis RN RN Dorothy Chi RN RN ld1 Krish العلي RN RN as6 Josephine Tan RN RN ha1 Lupis Benoit, PA-C PA-C sb4 Francy Hathaway
[2023-06-21] MEDS ORDERED: HYDROCODONE/APAP 5/325 MG TAB PO PRN (19:14)
[2023-06-21] MEDS ORDERED: ACETAMINOPHEN 325 MG TABLET PO PRN (19:14)
[2023-06-21] MEDS ORDERED: ONDANSETRON 4 MG/2 ML VIAL IV PRN (19:14)
[2023-06-21] MEDS: CLINDAMYCIN INJ 600 MG in NA CHLORIDE 0.9% 50 ML IV SCH (19:30)
--- NOTE | 2023-06-21 19:30 | P.HP ---
Certification for Inpatient Patient admitted to: Inpatient With expected LOS: >2 Midnights Practitioner: I am a practitioner with admitting privileges, knowledge of patient current condition, hospital course, and medical plan of care. Services: Services provided to patient in accordance with Admission requirements found in Title 42 Section 412.3 of the Code of Federal Regulations Patient History Date of Service: 06/21/23 Reason for admission: Left leg redness, swelling and pain History of Present Illness: 32-year-old gentleman with no known past medical history presented to the emergency department with complaint of left leg swelling, redness and pain of 2 days duration associated with nausea and vomiting. The redness on patient's left leg progressed and patient now has a streak of erythema the medial aspect of the thigh up to the groin. Workup in the emergency department shows leukocytosis with WBC count of 17,000. He is mildly tachycardic and meets criteria for sepsis. Lactate is negative. Patient was given IV normal saline bolus and admitted for further management. Allergies No Known Allergies Allergy (Unverified 01/08/16 01:35) - Past Medical/Surgical History Diabetic: No -: None -: None - Family History Father -: Hypertension - Social History Smoking Status: Never smoker Alcohol use: Yes CD- Drugs: No Place of Residence: Home Review of Systems Other: Patient denied any abdominal pain. He denied any constipation or diarrhea. He endorsed headache. Except as documented, all other systems reviewed and negative. Physical Examination - Physical Exam General: Alert, In no apparent distress, Oriented x3 HEENT: Mucous membr. moist/pink, Sclerae nonicteric Neck: Supple, JVD not distended Respiratory: Clear to auscultation bilaterally, Normal air movement Cardiovascular: No edema, Regular rate/rhythm, Normal S1 S2 Capillary refill: <2 Seconds Gastrointestinal: Normal bowel sounds, Soft and benign, No tenderness Musculoskeletal: Swelling (Left leg) Integumentary: Erythema (Left leg, streak of erythema on the medial aspect of the left thigh.) Neurological: Normal speech, Normal strength at 5/5 x4 extr, Cranial nerves 3-12 intact Lymphatics: No axilla or inguinal lymphadenopathy - Studies Laboratory Data (last 24 hrs) 06/21/23 06/21/23 06/21/23 17:19 17:19 17:19 WBC 17.40 H Hgb 13.0 L Hct 38.9 L Plt Count 256 PT 16.4 H INR 1.51 APTT 33.9 Sodium 135 L Potassium 3.1 L BUN 12 Creatinine 1.07 Glucose 118 H Total Bilirubin 0.4 AST 12 L ALT 31 Alkaline Phosphatase 64 Microbiology Data (last 24 hrs): 06/21/23 17:13 Nasopharnyx Influenza Type A Antigen Screen - Final 06/21/23 17:13 Nasopharnyx Influenza Type B Antigen Screen - Final Assessment and Plan - Problems (Diagnosis) (1) Sepsis Current Visit: Yes Status: Acute (2) Lower extremity cellulitis Current Visit: Yes Status: Acute (3) Hypokalemia Current Visit: Yes Status: Acute - Plan Patient does not meet criteria for severe sepsis. Admit to the medical floor Continue IV normal saline Start IV Rocephin and clindamycin Keep lower extremity elevated Supportive measures with analgesics as needed Follow blood cultures. Replace potassium. - Advance Directives Does patient have a Living Will: No Does patient have a Durable POA for Healthcare: No
[2023-06-21] MEDS ORDERED: CLINDAMYCIN 900MG/D5W 900 MG/50 ML IVPB IV ONE (19:34)
[2023-06-21] MEDS ORDERED: POTASSIUM CL SA 10 MEQ TAB PO ONE (19:34)
[2023-06-21] MEDS: NA CHLORIDE 0.9% 1,000 ML IV SCH (21:58)
[2023-06-21] MEDS: CEFTRIAXONE 1,000 MG in NA CHLORIDE 0.9% 50 ML IVPB SCH (21:59)
[2023-06-21 22:26] VITALS: BMI 38.0
[2023-06-22 03:17] LABS: Absolute Lymphocytes (CBC) 2.1 K/uL (0.7-4.9); Lymphocytes % 13.9 % (15.3-44.8); MCV 77.9 fL (80-100); MPV 8.4 fL (7.6-11.3); Platelets 223 thou/uL (152-406); RBC Red Blood Cell Count 4.75 M/uL (4.33-5.43)
[2023-06-22 03:34] LABS: Phosphorus 1.6 mg/dL (2.5-4.9); Potassium 3.6 mEq/L (3.5-5.1)
[2023-06-22] MEDS: CLINDAMYCIN INJ 600 MG in NA CHLORIDE 0.9% 50 ML IV SCH ×3 (06:00)
[2023-06-22] MEDS ORDERED: CLINDAMYCIN 600MG/D5W 50 ML IV ONE (06:53)
[2023-06-22] MEDS: NA CHLORIDE 0.9% 1,000 ML IV SCH ×2 (06:55→14:17)
[2023-06-22] MEDS ORDERED: POTASSIUM CL SA 10 MEQ TAB PO ONE (08:00)
[2023-06-22] MEDS ORDERED: INFLUENZA VACCINE (for 6+ mo) 0.5 ML DOSE IMVAC ONE (08:00)
[2023-06-22] MEDS: ENOXAPARIN 40 MG/0.4 ML SQ SCH (10:27)
[2023-06-22] MEDS: CEFTRIAXONE 1,000 MG in NA CHLORIDE 0.9% 50 ML IVPB SCH ×2 (10:28→20:18)
[2023-06-22 10:45] LABS: Urine Bacteria None Seen /HPF (<20); Urine Bilirubin NEGATIVE (Negative); Urine Blood Negative (Negative); Urine Clarity Clear (Clear); Urine Color Light-Yellow (Yellow); Urine Glucose NEGATIVE (Negative); Urine Mucus Slight /HPF (None Seen); Urine Protein TRACE (Negative); Urine RBC <5 /HPF (None Seen); Urine Urobilinogen Normal (Normal)
--- NOTE | 2023-06-22 11:34 | P.PN ---
Date of Service: 06/22/23 Subjective: no significant change continues with erythema of lower leg, tracking up to groin - no worsening ROS: 10 point ROS as noted above, otherwise negative Physical Exam: GEN: Alert, oriented, NAD HEENT: Normal conjunctiva, sclera anicteric CV: Regular rate and rhythm, no edema Pulm: Nonlabored respirations on room air, clear bilaterally ABD: Soft, nontender, nondistended Integumentary: Erythema/swelling of Left leg (ankle to few inches below knee), streak of erythema on the medial aspect of the left thigh with some induration Neuro: Normal speech, normal affect vitals reviewed Problem List: Sepsis secondary to lower extremity cellulitis venous u/s (06/21): no DVT in left lower extremity Reports 2 days of left leg swelling/redness/pain. +nausea/vomiting Blood cx (06/21): pending continue empiric clindamycin / rocephin (/2-) afebrile, leukocytosis improving CRP, Procal elevated ID consulted monitoring for fasciitis, uncertain if thrombophlebitis vs lymphangitis unremarkable urinalysis PRN analgesics / antiemetics Keep legs elevated VTE: Lovenox Code: Full Dispo: Home, ~2-3 days Pending afebrile > 24 hours, leukocytosis improved, ID recc
[2023-06-22] MEDS ORDERED: CLINDAMYCIN 600MG/D5W 50 ML IV SCH (12:00)
[2023-06-22] MEDS: CLINDAMYCIN 900MG/D5W 900 MG/50 ML IVPB IV SCH (20:17)
[2023-06-22 22:30] VITALS: O2SAT 97
[2023-06-23] MEDS: NA CHLORIDE 0.9% 1,000 ML IV SCH ×3 (00:46→11:38)
[2023-06-23 02:40] LABS: Absolute Lymphocytes (CBC) 3.1 K/uL (0.7-4.9); Hematocrit 33.1 % (39.6-49.0); Lymphocytes % 24.8 % (15.3-44.8); MCV 78.3 fL (80-100); MPV 8.2 fL (7.6-11.3); Platelets 250 thou/uL (152-406); RBC Red Blood Cell Count 4.23 M/uL (4.33-5.43)
[2023-06-23 02:51] LABS: Phosphorus 2.7 mg/dL (2.5-4.9); Potassium 3.5 mEq/L (3.5-5.1)
[2023-06-23] MEDS: CLINDAMYCIN 900MG/D5W 900 MG/50 ML IVPB IV SCH ×3 (03:56→20:00)
[2023-06-23] MEDS ORDERED: POTASSIUM CL SA 10 MEQ TAB PO ONE (05:00)
[2023-06-23] MEDS: ENOXAPARIN 40 MG/0.4 ML SQ SCH (08:27)
[2023-06-23] MEDS: CEFTRIAXONE 1,000 MG in NA CHLORIDE 0.9% 50 ML IVPB SCH ×2 (08:27→21:32)
--- NOTE | 2023-06-23 11:03 | P.PN ---
Date of Service: 06/23/23 Subjective: Feeling a little better Erythema slowly improving - less red / severe, covering ~same area leg swelling ~same, maybe slightly worse no acute events overnight afebrile ROS: 10 point ROS as noted above, otherwise negative Physical Exam: GEN: Alert, oriented, NAD HEENT: Normal conjunctiva, sclera anicteric CV: Regular rate and rhythm, 1-2+ bilateral edema from knee down Pulm: Nonlabored respirations on room air, clear bilaterally ABD: Soft, nontender, nondistended Integumentary: Erythema/swelling of Left leg (ankle to few inches below knee), streak of erythema on the medial aspect of the left thigh with some induration Neuro: Normal speech, normal affect vitals reviewed Problem List: Sepsis secondary to lower extremity cellulitis venous u/s (06/21): no DVT in left lower extremity Reports 2 days of left leg swelling/redness/pain. +nausea/vomiting Blood cx (06/21): NGTD continue empiric clindamycin / rocephin (2-) afebrile, leukocytosis improving, CRP improving ID consulted monitoring for fasciitis, uncertain if thrombophlebitis vs lymphangitis unremarkable urinalysis PRN analgesics / antiemetics Keep legs elevated DC IVF 06/23 Start probiotic VTE: Lovenox Code: Full Dispo: Home, ~2-3 days Pending afebrile > 24 hours, leukocytosis improved, ID recc
--- NOTE | 2023-06-23 14:35 | P.CNS ---
Date of Consult: 06/23/23 Reason for Consult: cellulitis Chief Complaint: Left leg redness, swelling and pain History of Present Illness: Patient is a 32 yo male with no significant past medical history who presented to the ED with complaints of left lower extremity erythema, edema and pain. He reports the swelling and pain has been worsening over the past 3 days. He was started on empiric antibiotics, infectious disease was consulted. Allergies No Known Allergies Allergy (Unverified 01/08/16 01:35) Home medications list reviewed: Yes Home Medications: NK [No Home Meds] 06/21/23 - Past Medical/Surgical History Diabetic: No -: None -: None - Family History Father Medical History: Hypertension - Social History Alcohol use: Yes CD- Drugs: No Place of Residence: Home Review of Systems 10-point ROS is otherwise unremarkable Integumentary: Other (LLE erythema and edema ) Physical Examination Temp Pulse Resp BP Pulse Ox 97.0 F 90 16 134/70 97 06/23/23 12:00 06/23/23 08:00 06/23/23 12:00 06/23/23 12:00 06/23/23 12:00 General: Alert, In no apparent distress, Oriented x3 HEENT: Atraumatic, Normocephalic Neck: Supple, JVD not distended Respiratory: Clear to auscultation bilaterally, Normal air movement Cardiovascular: Regular rate/rhythm, Edema (LLE) Gastrointestinal: Normal bowel sounds, Soft and benign Integumentary: Tenderness/swelling (LLE), Erythema (LLE), Warmth (LLE) Neurological: Normal speech, Normal tone Laboratory Data - Reviewed Microbiology Data - Reviewed Imagings Data: - Reviewed Conclusions/Impression: Problem List Cellulitis of Left Lower Extremity Cellulitis of Left Lower Extremity - On Rocephin and Clindamycin (started 06/21) - Blood cultures 06/21: no growth 24 hours - Leukocytosis improving (17.4 -> 14.9 -> 12.4) - Temp 99.4 F CRP 237 -> 135 Recommendations: - Continue Rocephin and Clindamycin for now. - Monitor WBC and fever trends. PRN tylenol. - Keep left leg elevated Case discussed with Dr. Perla N.
[2023-06-24] MEDS: CLINDAMYCIN 900MG/D5W 900 MG/50 ML IVPB IV SCH ×3 (04:00→20:25)
[2023-06-24 07:20] LABS: Absolute Lymphocytes (CBC) 3.1 K/uL (0.7-4.9); Hematocrit 34.4 % (39.6-49.0); Lymphocytes % 28.9 % (15.3-44.8); MPV 8.6 fL (7.6-11.3); Platelets 307 thou/uL (152-406); RBC Red Blood Cell Count 4.41 M/uL (4.33-5.43)
[2023-06-24 07:36] LABS: C-Reactive Protein 75.6 mg/L (<3.00); Potassium 3.4 mEq/L (3.5-5.1)
[2023-06-24] MEDS: LACTOBACILLUS/ACIDOPHILUS TAB PO SCH (09:53)
[2023-06-24] MEDS: CEFTRIAXONE 1,000 MG in NA CHLORIDE 0.9% 50 ML IVPB SCH ×2 (09:54→20:24)
[2023-06-24] MEDS: ENOXAPARIN 40 MG/0.4 ML SQ SCH (09:55)
--- NOTE | 2023-06-24 10:09 | P.PN ---
Date of Service: 06/24/23 Subjective: Lower extremity erythema continues to improve slowly; Induration around groin / thigh improving Pain when ambulating ~same leg swelling ~same, not worse no acute events overnight afebrile ROS: 10 point ROS as noted above, otherwise negative Physical Exam: GEN: Alert, oriented, NAD HEENT: Normal conjunctiva, sclera anicteric CV: Regular rate and rhythm, 1-2+ bilateral edema from knee down Pulm: Nonlabored respirations on room air, clear bilaterally ABD: Soft, nontender, nondistended Integumentary: Erythema/swelling of Left leg (ankle to few inches below knee) Neuro: Normal speech, normal affect vitals reviewed Problem List: Sepsis secondary to lower extremity cellulitis venous u/s (06/21): no DVT in left lower extremity venous u/s (06/24): ordered r/o DVT Reports 2 days of left leg swelling/redness/pain. +nausea/vomiting Blood cx (06/21): NGTD continue empiric clindamycin / rocephin (2-) afebrile, leukocytosis resolved, CRP improving ID consulted monitoring for fasciitis, uncertain if thrombophlebitis vs lymphangitis unremarkable urinalysis PRN analgesics / antiemetics Keep legs elevated continue probiotic VTE: Lovenox Code: Full Dispo: Home, ~1 day; Anticipate discharge tomorrow if am labs okay, tolerate ambulating, afebrile > 24 hours
--- NOTE | 2023-06-24 11:42 | RAD REPORT ---
EXAM DESCRIPTION: US - Extremity Venous Uni Ltd - 06/24/2023 11:10 am CLINICAL HISTORY: Swelling. Rule out DVT COMPARISON: None. TECHNIQUE: Real-time sonographic evaluation of the left lower extremity deep venous system was perfo rmed. FINDINGS: Normal compressibility, flow augmentation, phasic flow and spontaneous flow is identified in the left lower extremity deep venous system. No intraluminal filling defects seen. IMPRESSION: No DVT in the left lower extremity.
[2023-06-25 02:51] LABS: C-Reactive Protein 55.5 mg/L (<3.00); Potassium 3.3 mEq/L (3.5-5.1)
[2023-06-25] MEDS: CLINDAMYCIN 900MG/D5W 900 MG/50 ML IVPB IV SCH (04:45)
--- NOTE | 2023-06-25 08:58 | P.DS ---
Admission Date: 06/21/23 Discharge Date: 06/25/23 Disposition: ROUTINE DISCHARGE Discharge Condition: GOOD Reason for Admission: Left leg redness, swelling and pain Consultations: ID - Dr. Perla Brief History of Present Illness: 32yo M, PMH: none Patient presented to the emergency department with complaint of left leg swelling, redness and pain of 2 days duration associated with nausea and vomiting. The redness on patient's left leg progressed and patient now has a streak of erythema the medial aspect of the thigh up to the groin. Workup in the emergency department shows leukocytosis with WBC count of 17,000. He is mildly tachycardic and meets criteria for sepsis. Lactate is negative. Patient was given IV normal saline bolus and admitted for further management. Hospital Course: Problem List: Sepsis secondary to lower extremity cellulitis Patient presented with worsening lower left extermity erythema/swelling/pain, +n ausea/vomiting. Severe pain with walking. WBC, CRP, Procal elevated on admission. Urinalysis was unremarkable. Venous u/s (06/21 & 06/24) were both negative for DVT in left lower extremity. ID was consulted. Patient was started on empiric IV rocephin / clindamycin and had improvement of his symptoms. Blood cultures without growth since 06/21/22. A repeat Venous U/S was done on 06/24 due to slight worsened / persistent swelling, which was negative for DVT. Suspect swelling was secondary to local inflammatory process and exacerbated further with IV fluid administration. Patient was feeling better, remained afebrile, leukocytosis improved, erythema/swelling improved and deemed stable for discharge home. Patient was able to tolerate ambulating with some weightbearing on lower left extremity on day of discharge. Advised to minimize weightbearing of lower left extremity for at least ~3-5 days. Advised light compression stockings / socks to restrict / help with swelling. Keep legs elevated when sitting / laying down. Patient is to complete 10 more days of Cephalexin for a total of 2 weeks of antibiotic treatment. Medications: Cephalexin x10 more days (06/21/23 - 07/05/23) [place] 5/325 as needed for pain Probiotic - Lactobacillus/acidophilus Over the counter (while taking antibiotic) Follow up: PCP 3-5 days Okay to return to work Tuesday06/29/23 without restrictions. Physical Exam: GEN: Alert, oriented, NAD HEENT: Normal conjunctiva, sclera anicteric CV: Regular rate and rhythm, trace-1+ bilateral edema from knee down Pulm: Nonlabored respirations on room air, clear bilaterally ABD: Soft, nontender, nondistended Integumentary: minimal Erythema/swelling of Left leg (ankle to few inches below knee) Neuro: Normal speech, normal affect Vital Signs/Physical Exam: Temp Pulse Resp BP Pulse Ox 97.6 F 81 15 115/57 L 96 06/25/23 04:00 06/25/23 04:00 06/25/23 04:00 06/25/23 04:00 06/25/23 04:00 Laboratory Data at Discharge: WBC 10.70 thou/uL (4.3-10.9) 06/24/23 05:55 Hgb 11.4 g/dL (13.6-17.9) L 06/24/23 05:55 Hct 34.4 % (39.6-49.0) L 06/24/23 05:55 Plt Count 307 thou/uL (152-406) 06/24/23 05:55 PT 16.4 SECONDS (9.5-12.5) H 06/21/23 17:19 INR 1.51 06/21/23 17:19 APTT 33.9 SECONDS (24.3-36.9) 06/21/23 17:19 Sodium 139 mEq/L (136-145) 06/25/23 02:05 Potassium 3.3 mEq/L (3.5-5.1) L 06/25/23 02:05 BUN 9 mg/dL (7-18) 06/25/23 02:05 Creatinine 0.85 mg/dL (0.70-1.30) 06/25/23 02:05 Glucose 113 mg/dL (74-106) H 06/25/23 02:05 Phosphorus 2.7 mg/dL (2.5-4.9) 06/23/23 01:50 Magnesium 2.0 mg/dL (1.6-2.4) 06/22/23 02:44 Total Bilirubin 0.4 mg/dL (0.2-1.0) 06/21/23 17:19 AST 12 U/L (15-37) L 06/21/23 17:19 ALT 31 U/L (16-61) 06/21/23 17:19 Alkaline Phosphatase 64 U/L (45-117) 06/21/23 17:19 Home Medications: Hydrocodone 5/APAP 325 [[place] 5/325*] 1 tab PO Q6H PRN #15 tab 06/25/23 cephALEXin [Cephalexin] 500 mg PO Q6H 10 Days #40 tab 06/25/23 New Medications: cephALEXin [Cephalexin] 500 mg PO Q6H 10 Days #40 tab Hydrocodone 5/APAP 325 [[place] 5/325*] 1 tab PO Q6H PRN #15 tab PRN Reason: Pain Physician Discharge Instructions: Patient presented with worsening lower left extermity erythema/swelling/pain, +nausea/vomiting. Severe pain with walking. WBC, CRP, Procal elevated on adm ission. Urinalysis was unremarkable. Venous u/s (06/21 & 06/24) were both negative for DVT in left lower extremity. ID was consulted. Patient was started on empiric IV rocephin / clindamycin and had improvement of his symptoms. Blood cultures without growth since 06/21/22. A repeat Venous U/S was done on 06/24 due to slight worsened / persistent swelling, which was negative for DVT. Suspect swelling was secondary to local inflammatory process and exacerbated further with IV fluid administration. Patient was feeling better, remained afebrile, leukocytosis improved, erythema/swelling improved and deemed stable for discharge home. Patient was able to tolerate ambulating with some weightbearing on lower left extremity on day of discharge. Advised to minimize weightbearing of lower left extremity for at least ~3-5 days. Advised light compression stockings / socks to restrict / help with swelling. Keep legs elevated when sitting / laying down. Patient is to complete 10 more days of Cephalexin for a total of 2 weeks of antibiotic treatment. Medications: Cephalexin x10 more days (06/21/23 - 07/05/23) [place] 5/325 as needed for pain Probiotic - Lactobacillus/acidophilus Over the counter (while taking antibiotic) Follow up: PCP 3-5 days Okay to return to work Tuesday06/29/23 without restrictions. Followup: NONE,NONE [Primary Care Provider] - Time spent managing pt's care (in minutes): 45
[2023-06-25] MEDS: ENOXAPARIN 40 MG/0.4 ML SQ SCH (09:00)
[2023-06-25] MEDS: CEFTRIAXONE 1,000 MG in NA CHLORIDE 0.9% 50 ML IVPB SCH (09:39)
[2023-06-25] MEDS: LACTOBACILLUS/ACIDOPHILUS TAB PO SCH (09:39)
[2023-06-25 10:27] VITALS: BP 125/99; TEMP 98.1
== END 2023-06-25 10:30 | disposition home or self-care (01) | DRG 872 ==
LOC: ER 14:31 → ERHOLD 19:13 → 2ND 20:27
PROVIDERS: ADMIT Internal Medicine; ATTEND Hospitalist
DX: A41.9 Sepsis, unspecified organism (principal); L03.116 Cellulitis of left lower limb; R65.20 Severe sepsis without septic shock; E87.6 Hypokalemia; Z11.52 Encounter for screening for COVID-19
CPT/HCPCS: 36415; 80048; 80053; 81001; 83036; 83605; 83735; 84100; 84145; 85025; 85610; 85730; 86140; 87040; 87804; 87811; 93971; 96361; 96365; 96366; 99285; J0696; J1650; J7030

== ENCOUNTER 2023-10-28 05:08 | Inpatient (IN) | payer SELFPAY ==
--- OUTSIDE RECORDS SUMMARY | 2023-10-28 05:10 | XMS REPORT | Continuity of Care Document ---
Author Name Unknown Address [address] [facility] [place] [address] [facility] thconnect Address [address] [facility] [address] [place] [address] Care Team Providers Care Delivery Engineer Name Role Phone Nettie Andujar Attending Clinician Unavailable Problems Condition Name Condition Details Condition Category Status Onset Date Resolution Date Last Treatment Date Treating Clinician Comments Source [id number] Obesity, Class III, BMI 40-49.9 (morbid obesity) Problem Active [facility] [id number] Obstructiv e sleep apnea syndrome Problem Active [facility] [id number] Fatigue, unspecifie d type Problem Active [facility] [id number] Adult general medical exam Problem Active [facility] Social History Social Habit Start Date Stop Date Quantity Comments Source History of Tobacco Use [facility] Sex Assigned At [facility] Smoking Status Start Date Stop Date Source Never Smoker [facility] Medications Ordered Medication Name Filled Medication Name Start Date Stop Date Current Medication? Ordering Clinician Indication Dosage Frequency Signature (SIG) Comments Components Source Hydrochloro thiazide 12.5 MG Hydrochloro thiazide 12.5 MG 08-09 00:00: 00 No 1{table t_in_th e_morni ng} QD Hydrochlor othiazide 12.5 MG Vital Signs Vital Name Observation Time Observation Value Comments S ource height 2020-08-09 09:00:00 68 [in_i] Commo n [facility] weight 2020-08-09 09:00:00 273.6 [lb_av] Co mmon [facility] temperature 2020-08-09 09:00:00 97.6 [degF] Com mon [facility] bmi 2020-08-09 09:00:00 41.6 kg/m2 Commo n [facility] oximetry 2020-08-09 09:00:00 96 % Commo n [facility] respiratory rate 2020-08-09 09:00:00 16 /min [facility] blood pressure systolic 2020-08-09 09:00:00 139 mm[Hg] [facility] blood pressure diastolic 2020-08-09 09:00:00 81 mm[Hg] [facility] Encounters Start Date/Time End Date/Time Encounter Type Admission Type Attending Clinicians Care Facility Care Department Encounter ID Source 2021-07-15 12:31:34 Outpatient Nettie Andujar [facility] [id number] [facility] 2021-07-15 12:31:19 Outpatient Nettie Andujar [facility] [id number] [facility] 2023-07-04 08:46:26 2023-07-04 08:46:26 Outpatient [facility] [id number] [facility] 2023 13:49:47 2023 13:49:47 Outpatient [facility] [id number] Eddie Hughes 2020-08-09 00:00:00 2020-08-09 00:00:00 OFFICE VISIT EST PT LEVEL 3 [facility] [id number] [facility] 2019-04-03 10:36:00 2019-04-03 10:36:00 Outpatient [facility] [id number] 2019-03-29 14:21:00 2019-03-29 14:21:00 [facility] [id number] [facility] 2019-03-15 11:40:00 2019-03-15 11:40:00 Outpatient [facility] [id number] [facility] 2019-02-16 14:09:00 2019-02-16 14:09:00 Outpatient [facility] [id number] [facility] 2019-02-15 09:00:00 2019-02-15 09:00:00 Outpatient [facility] [id number] [facility]
[2023-10-28] MEDS ORDERED: VANCOMYCIN 1 GM/VIAL ONE (05:41)
[2023-10-28] MEDS ORDERED: NA CHLORIDE 0.9% 250 ML ONE (05:41)
[2023-10-28] MEDS ORDERED: ACETAMINOPHEN 500 MG TAB ONE (05:41)
[2023-10-28] MEDS ORDERED: NA CHLORIDE 0.9% 1,000 ML ONE (05:42)
[2023-10-28 05:52] LABS: Absolute Lymphocytes (CBC) 0.6 K/uL (0.7-4.9); Absolute Monocytes 0.8 K/uL (0.1-1.3); Absolute Neutrophil 18.7 K/uL (1.8-8.0); Basophils % 0.1 % (0-1.3); Hematocrit 39.5 % (39.6-49.0); Hemoglobin 12.9 g/dL (13.6-17.9); Lymphocytes % 3.2 % (15.3-44.8); MCH 25.5 pg (27.0-35.0); MCHC 32.7 g/dL (32.0-36.0); MCV 77.9 fL (80-100); Monocytes % 3.9 % (3.3-12.3); Neutrophils % 92.8 % (41.7-73.7); Platelets 272 thou/uL (152-406); RBC Red Blood Cell Count 5.07 M/uL (4.33-5.43); Red Cell Distribution Width 14.6 % (12.1-15.2)
[2023-10-28 05:58] LABS: PT Prothrombin Time 14.2 SECONDS (9.5-12.5); PTT, Activated Partial Thromb 32.4 SECONDS (24.3-36.9); Protime INR 1.3
[2023-10-28 06:04] LABS: Albumin 3.9 g/dL (3.4-5.0); Albumin/Globulin Ratio 0.9 (1.1-1.8); Anion Gap 7.6 mEq/L (5.0-15.0); Bilirubin Total 0.5 mg/dL (0.2-1.0); Globulin 4.2 g/dL (2.3-3.5); Potassium 3.6 mEq/L (3.5-5.1); Protein, Total 8.1 g/dL (6.4-8.2)
--- NOTE | 2023-10-28 06:49 | EDPHYS ---
Physician Documentation [facility] Brian Name: Gal Carrier Age: 33 yrs Sex: Male : 1990 Arrival Date: 10/28/2023 Time: 05:08 Bed 20 Private MD: ED Physician Sher Valladares HPI: 10/27 05:54 This 33 yrs old Black Male presents to ER via Ambulatory with complaints of Leg rt Swelling, Fever. 05:54 Patient with previous admission this year for cellulitis of the left lower extremity rt presents to the ED with swelling, pain to the left lower extremity first noticed at about 8 PM last night. Reports of fever, chills. Denies other acute complaints at this time, symptoms are moderate in severity, no other aggravating or alleviating factors.. Historical: - Allergies: 05:27 No Known Allergies; pf1 - PMHx: 05:27 Cellulitis; pf1 - PSHx: 05:27 None; pf1 - Immunization history:: Adult Immunizations not up to date, Client reports receiving the 2nd dose of the Covid vaccine, Last tetanus immunization: > 10 years ago Flu vaccine is not up to date. - Infectious Disease History:: Denies. - Social history:: Smoking status: Reported history of juuling and/or vaping. Patient uses alcohol, only on a social basis. Patient/guardian denies using street drugs. - Family history:: not pertinent. ROS: 05:54 Cardiovascular: Negative for chest pain, palpitations, and edema, Respiratory: Negative rt for shortness of breath, cough, wheezing, and pleuritic chest pain, Abdomen/GI: Negative for abdominal pain, nausea, vomiting, diarrhea, and constipation, MS/Extremity: Negative for injury and deformity, Neuro: Negative for headache, weakness, numbness, tingling, and seizure, 05:54 Constitutional: Positive for chills, fever, 05:54 Skin: Positive for cellulitis, erythema, Exam: 05:54 Constitutional: This is a well developed, well nourished patient who is awake, alert, rt and in no acute distress. Head/Face: Normocephalic, atraumatic. Chest/axilla: Normal chest wall appearance and motion. Nontender with no deformity. No lesions are appreciated. Cardiovascular: Regular rate and rhythm with a normal S1 and S2. No gallops, murmurs, or rubs. Normal PMI, no JVD. No pulse deficits. Respiratory: Lungs have equal breath sounds bilaterally, clear to auscultation and percussion. No rales, rhonchi or wheezes noted. No increased work of breathing, no retractions or nasal flaring. Abdomen/GI: Soft, non-tender, with normal bowel sounds. No distension or tympany. No guarding or rebound. No evidence of tenderness throughout. Neuro: Awake and alert, GCS 15, oriented to person, place, time, and situation. Cranial nerves II-XII grossly intact. Motor strength 5/5 in all extremities. Sensory grossly intact. Cerebellar exam normal. Normal gait. 05:54 ECG was reviewed by the Attending Physician. 05:54 Musculoskeletal/extremity: Warmth, erythema noted to the distal left lower extremity, pulses, motor, sensation intact. Vital Signs: 05:12 BP 121 / 59; Pulse 105; Resp 18; Temp 102.2; Pulse Ox 97% on R/A; Weight 124.74 kg; pf1 Height 5 ft. 7 in. ; Pain 8/10; 05:30 BP 107 / 63; Pulse 103; Resp 16; Pulse Ox 98% on R/A; cm10 06:00 BP 116 / 68; Pulse 103; Resp 18; Pulse Ox 99% ; cm10 06:34 Temp 101.2(O); cm10 06:42 BP 109 / 63; Pulse 106; Resp 18; Pulse Ox 98% on R/A; cm10 07:10 Temp 100.2(O); kc6 05:12 Body Mass Index 43.07 (124.74 kg, 170.18 cm) pf1 05:12 Pain Scale: Adult pf1 MDM: 05:23 Patient medically screened. rt 06:49 Differential diagnosis: Cellulitis, sepsis. Data reviewed: vital signs, nurses notes, rt lab test result(s). Consideration of Admission/Observation Patient was admitted/placed on observation. Management of patient was discussed with the following: Hospitalist: Agrees to admit. I considered the following discharge prescriptions or medication management in the emergency department Medications were administered in the Emergency Department. See MAR. Test considered but Not performed: Ultrasound Patient with previous negative DVT workup for same symptoms, I do not believe that ultrasound is indicated . Counseling: I had a detailed discussion with the patient and/or guardian regarding the historical points, exam findings, and any diagnostic results supporting the discharge/admit diagnosis, lab results, the need for further work-up and treatment in the hospital. Response to treatment: There is no appreciated change of the patient's symptoms at this time. 10/27 05:29 Order name: Blood Culture Adult (2) rt 10/27 05:29 Order name: CBC with Diff rt 10/27 05:29 Order name: CMP; Complete Time: 06:05 rt 10/27 05:29 Order name: Lactate w/ 2H reflex if indic.; Complete Time: 06:05 rt 10/27 05:29 Order name: Protime (+inr); Complete Time: 06:05 rt 10/27 05:29 Order name: Ptt, Activated; Complete Time: 06:05 rt 10/27 07:01 Order name: Urinalysis w/ reflexes EDMS 10/27 07:01 Order name: CBC with Automated Diff EDMS 10/27 07:01 Order name: CBC with Automated Diff EDMS 10/27 07:01 Order name: CBC with Automated Diff EDMS 10/27 07:01 Order name: CBC with Automated Diff EDMS 10/27 07:01 Order name: Comprehensive Metabolic Panel EDMS 10/27 07:01 Order name: Comprehensive Metabolic Panel EDMS 10/27 07:01 Order name: Comprehensive Metabolic Panel EDMS 10/27 07:01 Order name: Comprehensive Metabolic Panel EDMS 10/27 07:01 Order name: Lipid Profile EDMS 10/27 07:01 Order name: Lipid Profile EDMS 10/27 07:01 Order name: Magnesium EDMS 10/27 07:01 Order name: Magnesium EDMS 10/27 07:04 Order name: Vancomycin Level Trough EDMS 10/27 07:01 Order name: Extremity Venous Uni Ltd EDMS 10/27 05:29 Order name: Cardiac monitoring; Complete Time: 05:39 rt 10/27 05:29 Order name: EKG - Nurse/Tech; Complete Time: 05:39 rt 10/27 05:29 Order name: IV Saline Lock - Large Bore; Complete Time: 05:39 rt 10/27 05:29 Order name: Labs collected and sent; Complete Time: 05:39 rt 10/27 05:29 Order name: O2 Per Protocol; Complete Time: 05:39 rt 10/27 05:29 Order name: O2 Sat Monitoring; Complete Time: 05:39 rt 10/27 05:29 Order name: Vital Signs; Complete Time: 05:39 rt EC:54 Rate is 103 beats/min. Rhythm is regular, Sinus tachycardia with No ectopy. QRS [place] is rt Normal. [place] interval is normal. QRS interval is normal. QT interval is normal. No Q waves. T waves are Normal. No ST changes noted. Administered Medications: 05:49 Drug: NS 0.9% IV 1000 ml IV at 1 bolus Per protocol; 1000 mL bolus Route: IV; Rate: 1 cm10 bolus; Site: right antecubital; 06:35 Follow up: Response: No adverse reaction; IV Status: Completed infusion; IV Intake: cm10 1000ml 05:49 Drug: Acetaminophen PO 1000 mg PO once Route: PO; cm10 06:34 Follow up: Response: No adverse reaction; Temperature is decreased cm10 05:58 Drug: vancoMYCIN IVPB 1 grams IVPB once over 2 hrs Route: IVPB; Infused Over: 2 hrs; cm10 Site: right antecubital; Disposition Summary: 10/28/23 06:49 Hospitalization Ordered Notes: Hospitalization Status: Inpatient Admission rt Provider: Bang Lockwood rt Location: Telemetry/MedSurg (Inpatient) rt Condition: Stable rt Problem: new rt Symptoms: are unchanged rt Bed/Room Type: Standard rt Room Assignment: [facility](10/28/23 07:12) eb Diagnosis - Cellulitis to left lower extremity rt - Sepsis rt Forms: - Medication Reconciliation Form rt - SBAR form rt - Leadership Thank You Letter rt Critical care time excluding procedures: 06:55 Critical care time: Bedside Care: 30 minutes, Consultation: 5 minutes. Total time: 35 rt minutes Signatures: Dispatcher [employer] Shantal Singh Ryan, MD MD rt Skye Sahu RN RN pf1 Kathryn Fowler RN RN cm10 Corrections: (The following items were deleted from the chart) 07:12 06:49 rt eb
--- NOTE | 2023-10-28 06:49 | ER ---
Nurse's Notes [facility] Brian Name: Gal Lam Age: 33 yrs Sex: Male : 1990 Arrival Date: 10/28/2023 Time: 05:08 Bed 20 Private MD: Diagnosis: Cellulitis to left lower extremity;Sepsis Presentation: 10/27 05:12 Chief complaint: Patient states: LLE pain of 8 with redness. swelling and ever, onset pf1 2030 last night. 05:12 Coronavirus screen: Vaccine status: Patient reports receiving the 2nd dose of the covid pf1 vaccine. Client denies travel out of the [place] in the last 14 days. At this time, the client does not indicate any symptoms associated with coronavirus-19. Ebola Screen: Patient negative for fever greater than or equal to 101.5 degrees Fahrenheit, and additional compatible Ebola Virus Disease symptoms. Initial Sepsis Screen: Does the patient meet any 2 criteria? Temp <36.0*C (96.8*F)) or > 38.3*C (100.9*F). HR > 90 bpm. Does the patient have a suspected source of infection? No. Patient's initial sepsis screen is negative. Risk Assessment: Do you want to hurt yourself or someone else? Patient reports no desire to harm self or others. Onset of symptoms was October 27, 2023 at 20:30. 05:12 Method Of Arrival: Ambulatory pf1 05:12 Acuity: ALEXANDRO 3 pf1 Triage Assessment: 05:15 General: Appears in no apparent distress. comfortable, well groomed, well developed, pf1 Behavior is calm, cooperative, appropriate for age, quiet. Pain: Complains of pain in left leg and left duarte Pain currently is 8 out of 10 on a pain scale. Pain began yesterday. Derm: Reports redness and swelling to LLE. Historical: - Allergies: 05:27 No Known Allergies; pf1 - PMHx: 05:27 Cellulitis; pf1 - PSHx: 05:27 None; pf1 - Immunization history:: Adult Immunizations not up to date, Client reports receiving the 2nd dose of the Covid vaccine, Last tetanus immunization: > 10 years ago Flu vaccine is not up to date. - Infectious Disease History:: Denies. - Social history:: Smoking status: Reported history of juuling and/or vaping. Patient uses alcohol, only on a social basis. Patient/guardian denies using street drugs. - Family history:: not pertinent. Screenin:21 [facility] ED Fall Risk Assessment (Adult) History of falling in the last 3 months, cm10 including since admission No falls in past 3 months (0 pts) Confusion or Disorientation No (0 pts) Intoxicated or Sedated No (0 pts) Impaired Gait No (0 pts) Mobility Assist Device Used No (0 pt) Altered Elimination No (0 pt) Score/Fall Risk Level 0 - 2 = Low Risk Oriented to surroundings, Maintained a safe environment, Hourly rounding (assess needs \T\ fall precautionary measures) done. Abuse screen: Denies threats or abuse. Denies injuries from another. Nutritional screening: No deficits noted. Tuberculosis screening: No symptoms or risk factors identified. Assessment: 05:20 General: Appears in no apparent distress. uncomfortable, Behavior is calm, cooperative. cm10 Pain: Complains of pain in left duarte Pain radiates to left leg Pain currently is 8 out of 10 on a pain scale. Pain began 1 day ago. Neuro: No deficits noted. Level of Consciousness is awake, alert, obeys commands, Oriented to person, place, time, situation, Appropriate for age. Respiratory: No deficits noted. Airway is patent Respiratory effort is even, unlabored, Respiratory pattern is regular, symmetrical. Derm: Redness noted to left lower leg. Musculoskeletal: No deficits noted. Range of motion: intact in all extremities. 07:05 General: Appears in no apparent distress. comfortable, well groomed, well developed, kc6 Behavior is calm, cooperative, appropriate for age. Neuro: Level of Consciousness is awake, alert, obeys commands, Oriented to person, place, time, situation, Appropriate for age. Cardiovascular: Capillary refill < 3 seconds. Respiratory: Airway is patent Trachea midline Respiratory effort is even, unlabored, Respiratory pattern is regular, symmetrical. GI: No signs and/or symptoms were reported involving the gastrointestinal system. : No signs and/or symptoms were reported regarding the genitourinary system. EENT: No signs and/or symptoms were reported regarding the EENT system. Derm: Skin is intact, is healthy with good turgor, Skin is pink, warm \T\ dry. redness to the LLE. Musculoskeletal: No signs and/or symptoms reported regarding the musculoskeletal system. Circulation, motion, and sensation intact. Capillary refill < 3 seconds, Range of motion: intact in all extremities. Vital Signs: 05:12 BP 121 / 59; Pulse 105; Resp 18; Temp 102.2; Pulse Ox 97% on R/A; Weight 124.74 kg; pf1 Height 5 ft. 7 in. ; Pain 8/10; 05:30 BP 107 / 63; Pulse 103; Resp 16; Pulse Ox 98% on R/A; cm10 06:00 BP 116 / 68; Pulse 103; Resp 18; Pulse Ox 99% ; cm10 06:34 Temp 101.2(O); cm10 06:42 BP 109 / 63; Pulse 106; Resp 18; Pulse Ox 98% on R/A; cm10 07:10 Temp 100.2(O); kc6 05:12 Body Mass Index 43.07 (124.74 kg, 170.18 cm) pf1 05:12 Pain Scale: Adult pf1 ED Course: 05:10 Patient arrived in ED. mr 05:12 Sher Valladares MD is Attending Physician. rt 05:19 Kathryn Fowler RN is Primary Nurse. cm10 05:21 Patient has correct armband on for positive identification. Bed in low position. Call cm10 light in reach. Side rails up X2. Provided Education on: ER process and procedures.. 05:27 Triage completed. pf1 05:30 Initial lab(s) drawn, by me, sent to lab. First set of blood cultures drawn by me. cm10 Inserted saline lock: 20 gauge in right antecubital area, using aseptic technique. Blood collected. 05:39 CBC with Diff Sent. cm10 05:39 CMP Sent. cm10 05:39 Lactate w/ 2H reflex if indic. Sent. cm10 05:39 Protime (+inr) Sent. cm10 05:40 Ptt, Activated Sent. cm10 05:43 EKG done, by ED staff, reviewed by Sher Valladares MD. pf1 05:54 Second set of blood cultures drawn by me. cm10 06:48 Bang Lockwood MD is Hospitalizing Provider. rt 07:00 Report received from CONSTANCE Peralta. kc6 07:00 Arm band placed on. kc6 07:02 Report given to Nathaly. cm10 Administered Medications: 05:49 Drug: NS 0.9% IV 1000 ml IV at 1 bolus Per protocol; 1000 mL bolus Route: IV; Rate: 1 cm10 bolus; Site: right antecubital; 06:35 Follow up: Response: No adverse reaction; IV Status: Completed infusion; IV Intake: cm10 1000ml 05:49 Drug: Acetaminophen PO 1000 mg PO once Route: PO; cm10 06:34 Follow up: Response: No adverse reaction; Temperature is decreased cm10 05:58 Drug: vancoMYCIN IVPB 1 grams IVPB once over 2 hrs Route: IVPB; Infused Over: 2 hrs; cm10 Site: right antecubital; Medication: 05:21 VIS not applicable for this client. cm10 Intake: 06:35 IV: 1000ml; Total: 1000ml. cm10 Outcome: 06:49 Decision to Hospitalize by Provider. rt 08:10 Patient left the ED. kc6 Signatures: Kirti Whyte, Reg Reg mr Ping Milan, RN RN kc6 Sher Valladares MD MD rt Skye Sahu RN RN pf1 Kathryn Fowler RN RN cm10
[2023-10-28] MEDS ORDERED: HYDROCODONE/APAP 10/325 TAB PO PRN (07:00)
--- NOTE | 2023-10-28 07:05 | P.HP ---
Certification for Inpatient Patient admitted to: Inpatient With expected LOS: >2 Midnights Patient will require the following post-hospital care: None Practitioner: I am a practitioner with admitting privileges, knowledge of patient current condition, hospital course, and medical plan of care. Services: Services provided to patient in accordance with Admission requirements found in Title 42 Section 412.3 of the Code of Federal Regulations <Angle Quach - Last Filed: 10/28/23 10:24> Patient History Date of Service: 10/28/23 Reason for admission: Cellulitis, sepsis History of Present Illness: Mr. Lam is a 33-year-old -[place] male with very little past medical history. He he reports no allergies, no surgical history, no concerning family history. He used to smoke cigarettes but switched to vaping recently, drinks alcohol socially, denies illicit drug use. This gentleman works nights. He and his state that June 25 of this year he was admitted with a left lower extremity cellulitis that seemingly came from nowhere. Last p.m., at his first break at work at 2030 he suddenly became cold, weak, nauseous. Around 5 AM, his brought him to the emergency department with fever to 102.2, pain of 8/10 with erythema to the left lower extremity. He received a gram of Tylenol, 1 L fluid bolus, vancomycin 1 g IV piggyback and will be admitted for left lower extremity cellulitis with sepsis. His labs are remarkable for a white count of 20.2 with neutrophils of 92.8%, hemoglobin 12.9/39.5, platelets 272. He is mildly hyponatremic at 132, potassium 3.6, chloride 101, CO2 27, glucose 116, BUN 13, creatinine 1.26, GFR 76. His LFTs are normal, INR 1.3, his lactate is 1.7. On exam he is alert, oriented, and remains febrile at 101. We will admit him for IV antibiotics and will ultrasound his left lower extremity to rule out DVT. Home medications list reviewed: Yes (None) - Past Medical/Surgical History Has patient received pneumonia vaccine in the past: No Diabetic: No -: Cellulitis -same area 06/25/23 -: None Psychosocial/ Personal History: Lives at home with his . Works nights - Family History Father -: Hypertension - Social History Smoking Status: Smoker current status UNK Alcohol use: Yes CD- Drugs: No Caffeine use: Yes Place of Residence: Home <Angle Quach - Last Filed: 10/28/23 10:24> Date of Service: 10/28/23 <Bang Lockwood - Last Filed: 10/28/23 16:55> Allergies No Known Allergies Allergy (Unverified 01/08/16 01:35) Home Medications: NK [No Home Meds] 10/28/23 Review of Systems 10-point ROS is otherwise unremarkable General: Fever, Weakness, Malaise Gastrointestinal: Nausea Genitourinary: As per HPI Integumentary: As per HPI <Angle Quach - Last Filed: 10/28/23 10:24> Physical Examination - Physical Exam General: Alert, In no apparent distress, Oriented x3, Other (febrile) HEENT: Atraumatic, Normocephalic Neck: 2+ carotid pulse no bruit Respiratory: Clear to auscultation bilaterally Cardiovascular: Normal pulses, Other (tachycardia) Capillary refill: <2 Seconds Gastrointestinal: Soft and benign Musculoskeletal: No clubbing Integumentary: Tenderness/swelling, Erythema, Warmth, Other (left lower extremity) Neurological: Normal speech, Normal tone, Normal affect Lymphatics: No axilla or inguinal lymphadenopathy External genitalia: Deferred Rectal: Deferred - Studies Laboratory Data (last 24 hrs) 10/28/23 10/28/23 10/28/23 05:30 05:30 05:30 WBC 20.20 H Hgb 12.9 L Hct 39.5 L Plt Count 272 PT 14.2 H INR 1.30 APTT 32.4 Sodium 132 L Potassium 3.6 BUN 13 Creatinine 1.26 Glucose 116 H Total Bilirubin 0.5 AST 27 ALT 56 Alkaline Phosphatase 64 <Angle Quachlen - Last Filed: 10/28/23 10:24> - Studies Laboratory Data (last 24 hrs) 10/28/23 10/28/23 10/28/23 05:30 05:30 05:30 WBC 20.20 H Hgb 12.9 L Hct 39.5 L Plt Count 272 PT 14.2 H INR 1.30 APTT 32.4 Sodium 132 L Potassium 3.6 BUN 13 Creatinine 1.26 Glucose 116 H Total Bilirubin 0.5 AST 27 ALT 56 Alkaline Phosphatase 64 <Bang Lockwood - Last Filed: 10/28/23 16:55> Assessment and Plan - Plan Cellulitis with Sepsis IVF Vancomycin IVPB q 12h Cefepime 1gm IVPB q12 LLE US to r/o DVT Elevate LLE Fever/pain management Monitor and trend vital signs and infectious/inflammatory markers Tdap Immunization IM Hyponatremia NS at 150ml/hr DVT prophylaxis Lovenox sc Discharge Plan: Home Plan to discharge in: 72 Hours - Advance Directives Does patient have a Living Will: No Does patient have a Durable POA for Healthcare: No - Code Status/Comfort Care Code Status Assessed: Yes (Full) <Angle Quach Sarmad - Last Filed: 10/28/23 10:24> - Plan Pt seen and examined. I agree with the note by the DRYING AND WINDING SUPERVISOR. Pt is a 33yo male with past medical history of tobacco use who presents with LLE cellulitis. Of note, pt had LLE cellulitis in Jun, 2023 and it was treated with abx. Before this admission, pt noticed that he was weak, cold and nauseous while at work. His brought him to the ER came his symptoms progressively worsened and became associated with fever of 102.2. Lab studies showed white count of 20.2 with neutrophils of 92.8%, hemoglobin 12.9/39.5, platelets 272. Na 132, K 3.6, Cl 101, CO2 27, glucose 116, BUN 13, creatinine 1.26, GFR 76. His LFTs are normal, INR 1.3, his lactate is 1.7. At bedside, pt is in NAD. A/P: Sepsis 2/2 Left leg cellulitis: Will give iv vanc, cefepime, and f/u blood cx. Lactate is 1.7. Htn: Continue amlodipine and monitor. Hyponatremia: Na is 132. Will give NS IVF and trend sodium. Obesity: Pt will benefit from weight loss. DVT ppx: SCD Code: full <Bang Lockwood - Last Filed: 10/28/23 16:55>
[2023-10-28] MEDS ORDERED: VANCOMYCIN 1 GM in NA CHLORIDE 0.9% 250 ML IVPB ONE (08:00)
[2023-10-28] MEDS: VANCOMYCIN 1 GM in NA CHLORIDE 0.9% 250 ML IVPB ONE (08:46)
[2023-10-28] MEDS: NA CHLORIDE 0.9% 1,000 ML IV SCH (08:46)
[2023-10-28] MEDS: ENOXAPARIN 40 MG/0.4 ML SQ SCH (08:47)
[2023-10-28 09:57] LABS: Band Neutrophils 3 % (0-1); Blood Morphology Comment NOT SEEN (NOT SEEN); Differential Total Cells Count 100; Lymphocytes 6 % (15-42); Monocytes 8 % (0-10); Platelet Estimate ADEQ; Segmented Neutrophils 83 % (40-80)
--- NOTE | 2023-10-28 10:30 | RAD REPORT ---
EXAM DESCRIPTION: US - Extremity Venous Uni Ltd - 10/28/2023 8:33 am CLINICAL HISTORY: Swelling COMPARISON: None. TECHNIQUE: Real-time sonographic evaluation of the left lower extremity deep venous system was perfo rmed. FINDINGS: Normal compressibility, flow augmentation, phasic flow and spontaneous flow is identified in the left lower extremity deep venous system. No intraluminal filling defects seen. Prominent left groin lymph nodes, up to 1.6 cm in short axis, with preserved fatty hilum. IMPRESSION: No DVT in the left lower extremity. Prominent left groin lymph nodes, favored to be reactive/inflammatory.
[2023-10-28 11:08] LABS: Specific Gravity 1.008 (1.005-1.030); Urine Bilirubin NEGATIVE (Negative); Urine Blood Negative (Negative); Urine Clarity Clear (Clear); Urine Color Colorless (Yellow); Urine Glucose NEGATIVE (Negative); Urine Ketones NEGATIVE (Negative); Urine Microscopic Reflex YN NO UMIC; Urine Nitrite NEGATIVE (Negative); Urine Protein NEGATIVE (Negative); Urine Urobilinogen Normal (Normal)
[2023-10-28 11:14] VITALS: BMI 43.0
[2023-10-28] MEDS: CEFEPIME 2 GM in NA CHLORIDE 0.9% 100 ML IV SCH (11:44)
[2023-10-28] MEDS: ACETAMINOPHEN 325 MG TABLET PO PRN (12:00)
[2023-10-28] MEDS: TDAP (DIPHTH,PERTUSS(ACELL),TET VAC) 0.5 ML VIAL IMVAC ONE (12:31)
[2023-10-28] MEDS: POTASSIUM CL SA 10 MEQ TAB PO ONE ×2 (14:56→15:11)
[2023-10-28] MEDS: AMLODIPINE 5 MG TAB PO SCH (15:11)
[2023-10-28] MEDS ORDERED: VANCOMYCIN 1.5 GM in NA CHLORIDE 0.9% 500 ML IVPB SCH (18:00)
[2023-10-28] MEDS ORDERED: CEFEPIME 1 GM in NA CHLORIDE 0.9% 100 ML IV SCH (21:00)
[2023-10-28 22:21] VITALS: O2SAT 97
[2023-10-29] MEDS: VANCOMYCIN 2 GM in NA CHLORIDE 0.9% 500 ML IVPB SCH (06:29)
[2023-10-29 07:17] LABS: Absolute Lymphocytes (CBC) 1.5 K/uL (0.7-4.9); Absolute Monocytes 0.7 K/uL (0.1-1.3); Absolute Neutrophil 12.3 K/uL (1.8-8.0); Basophils % 0.3 % (0-1.3); Hematocrit 35.6 % (39.6-49.0); Hemoglobin 11.5 g/dL (13.6-17.9); Lymphocytes % 10.1 % (15.3-44.8); MCH 25.2 pg (27.0-35.0); MCHC 32.2 g/dL (32.0-36.0); MCV 78.3 fL (80-100); MPV 8.8 fL (7.6-11.3); Monocytes % 4.6 % (3.3-12.3); Platelets 225 thou/uL (152-406); RBC Red Blood Cell Count 4.55 M/uL (4.33-5.43)
[2023-10-29 07:42] LABS: Albumin 2.8 g/dL (3.4-5.0); Albumin/Globulin Ratio 0.7 (1.1-1.8); Anion Gap 8.4 mEq/L (5.0-15.0); Bilirubin Total 0.4 mg/dL (0.2-1.0); Globulin 3.9 g/dL (2.3-3.5); Magnesium 1.6 mg/dL (1.6-2.4); Potassium 3.4 mEq/L (3.5-5.1); Protein, Total 6.7 g/dL (6.4-8.2)
[2023-10-29 07:47] LABS: Phosphorus 1.4 mg/dL (2.5-4.9)
[2023-10-29] MEDS: POTASS/SODIUM PHOSPHATE 1 PKT POWD.PACK PO SCH (08:00)
[2023-10-29] MEDS: CLOTRIMAZOLE 1% CREAM 15 GM TOP SCH (09:00)
--- NOTE | 2023-10-29 10:08 | P.PN ---
Subjective Date of Service: 10/29/23 Chief Complaint: Cellulitis, sepsis Subjective: No C/O voiced (pt appears uncomfortable, has ice pack on his head. Declines pain meds. Encouraged to at least try toradol. Placed 2 pillows beneath left lower ext) <Angle Quachlen - Last Filed: 10/29/23 10:04> Date of Service: 10/29/23 <Bang Lockwood C - Last Filed: 10/29/23 10:31> Review of Systems 10-point ROS is otherwise unremarkable General: Other (99.1 overnight) Integumentary: As per HPI <Angle Quachlen - Last Filed: 10/29/23 10:04> Physical Examination - Vital Signs Temperature: 99.3 F Blood Pressure: 117/66 Pulse: 95 Respirations: 14 Pulse Ox (%): 96 - Physical Exam General: Alert, In no apparent distress, Oriented x3 HEENT: Atraumatic, Normocephalic Neck: Supple Respiratory: Normal air movement Cardiovascular: Normal pulses, Regular rate/rhythm Capillary refill: <2 Seconds Gastrointestinal: Soft and benign Musculoskeletal: No clubbing, No swelling Integumentary: Other (left lower ext slightly more edematous than yest, increased erythema, increased warmth. WBC decreased from previous. DVT study neg) Neurological: Normal speech, Normal tone Lymphatics: No axilla or inguinal lymphadenopathy External genitalia: Deferred Rectal: Deferred <Angle Quachlen - Last Filed: 10/29/23 10:04> Assessment And Plan - Plan Cellulitis with Sepsis IVF Vancomycin IVPB q 12h Cefepime 1gm IVPB q12 LLE US to r/o DVT 10/29/23 done and negative Elevate LLE 10/29/23 per me this am Fever/pain management Monitor and trend vital signs and infectious/inflammatory markers Tdap Immunization IM Hyponatremia NS at 150ml/hr DVT prophylaxis Lovenox sc <Angle Quach - Last Filed: 10/29/23 10:04> - Plan Pt ana nd examined. I agree with thenote by the EMERGENCY DEPARTMENT CLINICIAN. Pt is feeling better. Still has low grade fever. The left leg is more swollen this am. The erythema is improving. Will continue iv vanc and cefepime. Doppler ultrasound is negative for DVT. Will apply the clotrimazole cream in between his toes due to athletes foot. <Bang Lockwood - Last Filed: 10/29/23 10:31>
[2023-10-29] MEDS: POTASSIUM PHOS IN 0.9 % NACL 15 MMOL/250 ML BAG IV ONE (10:41)
[2023-10-29] MEDS: KETOROLAC 30 MG/ML INJ IV PRN (17:43)
[2023-10-30 08:05] LABS: Absolute Lymphocytes (CBC) 1.4 K/uL (0.7-4.9); Absolute Monocytes 0.6 K/uL (0.1-1.3); Basophils % 0.3 % (0-1.3); Eosinophils % 0.4 % (0-4.4); Hematocrit 34.4 % (39.6-49.0); Hemoglobin 11.2 g/dL (13.6-17.9); MCH 25.1 pg (27.0-35.0); MCHC 32.4 g/dL (32.0-36.0); MCV 77.4 fL (80-100); MPV 8.6 fL (7.6-11.3); Neutrophils % 79.3 % (41.7-73.7); Platelets 237 thou/uL (152-406); RBC Red Blood Cell Count 4.45 M/uL (4.33-5.43); Red Cell Distribution Width 14.8 % (12.1-15.2)
[2023-10-30 08:23] LABS: ALT/SGPT 66 U/L (16-61); AST/SGOT 44 U/L (15-37); Albumin 2.6 g/dL (3.4-5.0); Albumin/Globulin Ratio 0.7 (1.1-1.8); Alkaline Phosphatase 63 U/L (45-117); Anion Gap 7.4 mEq/L (5.0-15.0); BUN Blood Urea Nitrogen 4 mg/dL (7-18); Bicarbonate 25 mEq/L (21-32); Bilirubin Total 0.4 mg/dL (0.2-1.0); Glomerular Filtration Rate 122 ml/min (=/>90); Glucose Level 102 mg/dL (74-106); Magnesium 1.8 mg/dL (1.6-2.4); Phosphorus 1.6 mg/dL (2.5-4.9); Potassium 3.4 mEq/L (3.5-5.1); Protein, Total 6.6 g/dL (6.4-8.2); Sodium Level 138 mEq/L (136-145)
[2023-10-30] MEDS: POTASSIUM CL SA 10 MEQ TAB PO ONE (10:21)
[2023-10-30] MEDS: POTASS/SODIUM PHOSPHATE 1 PKT POWD.PACK PO SCH (10:21)
--- NOTE | 2023-10-30 11:17 | P.PN ---
Subjective Date of Service: 10/30/23 Chief Complaint: Cellulitis, sepsis Pt is resting comfortably in bed. He was eating breakfast when I saw him. The erythema on left leg is improving. No growth on blood cx. No other complaints. Review of Systems General: Unremarkable Eyes: Unremarkable ENT: Unremarkable Respiratory: Unremarkable Cardiovascular: Unremarkable Gastrointestinal: Unremarkable Genitourinary: Unremarkable Musculoskeletal: Unremarkable Integumentary: Other (erythma on left leg has improved.) Neurological: Unremarkable Lymphatics: Unremarkable Physical Examination - Vital Signs Temperature: 99.5 F Blood Pressure: 133/68 Pulse: 93 Respirations: 16 Pulse Ox (%): 95 - Physical Exam General: Alert, In no apparent distress, Oriented x3 HEENT: Atraumatic, Normocephalic, PERRLA Neck: Supple, 2+ carotid pulse no bruit Respiratory: Clear to auscultation bilaterally, Normal air movement Cardiovascular: No edema, Normal pulses, Regular rate/rhythm, Normal S1 S2 Capillary refill: <2 Seconds Gastrointestinal: Normal bowel sounds, Soft and benign, Non-distended Musculoskeletal: No clubbing, No swelling Integumentary: No rashes, No breakdown, Erythema Neurological: Normal speech, Normal strength at 5/5 x4 extr, Normal tone, Sensation intact, Cranial nerves 3-12 intact Lymphatics: No axilla or inguinal lymphadenopathy Assessment And Plan - Plan Sepsis 2/2 Cellulitis: Continue IVF, iv vanc and cefepime. No growth on blood cx. The erythema on left leg has improved. Doppler ultrasound is negative for DVT. s/p Tdap Immunization IM Hyponatremia: Na is 136. Will continue IVF and trend Na level. Obesity: Pt was advised to lose weight. DVT ppx: Lovenox Code: full Dispo: Pending hospital course.
[2023-10-30] MEDS: VANCOMYCIN 2 GM in NA CHLORIDE 0.9% 500 ML IVPB SCH (20:17)
[2023-10-31 06:50] LABS: Absolute Eosinophils 0.1 K/uL (0-0.5); Absolute Lymphocytes (CBC) 1.7 K/uL (0.7-4.9); Absolute Monocytes 0.7 K/uL (0.1-1.3); Absolute Neutrophil 4.9 K/uL (1.8-8.0); Basophils % 0.3 % (0-1.3); Eosinophils % 1.6 % (0-4.4); Hematocrit 35.4 % (39.6-49.0); Hemoglobin 11.6 g/dL (13.6-17.9); Lymphocytes % 22.4 % (15.3-44.8); MCH 25.4 pg (27.0-35.0); MCHC 32.7 g/dL (32.0-36.0); MCV 77.8 fL (80-100); Monocytes % 9.4 % (3.3-12.3); Neutrophils % 66.3 % (41.7-73.7); Nucleated Red Blood Cells % 0.1 % (0-0); Platelets 286 thou/uL (152-406); RBC Red Blood Cell Count 4.55 M/uL (4.33-5.43); Red Cell Distribution Width 14.9 % (12.1-15.2)
[2023-10-31 07:07] LABS: Magnesium 1.9 mg/dL (1.6-2.4)
[2023-10-31 07:11] LABS: Albumin 2.6 g/dL (3.4-5.0); Albumin/Globulin Ratio 0.6 (1.1-1.8); Anion Gap 7.5 mEq/L (5.0-15.0); Bilirubin Total 0.4 mg/dL (0.2-1.0); Globulin 4.3 g/dL (2.3-3.5); Potassium 3.5 mEq/L (3.5-5.1); Protein, Total 6.9 g/dL (6.4-8.2)
--- NOTE | 2023-10-31 08:29 | P.DS ---
Admission Date: 10/28/23 Discharge Date: 11/01/23 Disposition: ROUTINE DISCHARGE Discharge Condition: GOOD Reason for Admission: Cellulitis, sepsis Brief History of Present Illness: Mr. Lam is a 33-year-old -[place] male with very little past medical history. He he reports no allergies, no surgical history, no concerning family history. He used to smoke cigarettes but switched to vaping recently, drinks alcohol socially, denies illicit drug use. This gentleman works nights. He and his state that June 25 of this year he was admitted with a left lower extremity cellulitis that seemingly came from nowhere. Last p.m., at his first break at work at 2030 he suddenly became cold, weak, nauseous. Around 5 AM, his brought him to the emergency department with fever to 102.2, pain of 8/10 with erythema to the left lower extremity. He received a gram of Tylenol, 1 L fluid bolus, vancomycin 1 g IV piggyback and will be admitted for left lower extremity cellulitis with sepsis. His labs are remarkable for a white count of 20.2 with neutrophils of 92.8%, hemoglobin 12.9/39.5, platelets 272. He is mildly hyponatremic at 132, potassium 3.6, chloride 101, CO2 27, glucose 116, BUN 13, creatinine 1.26, GFR 76. His LFTs are normal, INR 1.3, his lactate is 1.7. On exam he is alert, oriented, and remains febrile at 101. We will admit him for IV antibiotics and will ultrasound his left lower extremity to rule out DVT. - Physical Exam General: Alert, In no apparent distress, Oriented x3, HEENT: Atraumatic, Normocephalic Neck: 2+ carotid pulse no bruit Respiratory: Clear to auscultation bilaterally Cardiovascular: Normal pulses, Capillary refill: <2 Seconds Gastrointestinal: Soft and benign Musculoskeletal: No clubbing Integumentary: Tenderness/swelling, Erythema, Warmth, Other (left lower extremity) Neurological: Normal speech, Normal tone, Normal affect Hospital Course: 33 year-old male patient presented with left lower extremity pain and swelling. Was noted to have left lower extremity cellulitis. Condition improved with IV antibiotics, as needed analgesics. Patient tolerating diet, stable for discharge to home with follow-up appointment with primary care physician in 1 week PROBLEM: Left lower extremity cellulitis with IV antibiotic inpatient, plan to discharge home on p.o. antibiotics Hyponatremia treated with IV fluids improved Obesity educated on weight loss Transaminitis- Rad/Lab/Micro: Leukocytosis secondary to left lower extremity cellulitis improved with IV antibiotic Microcytic anemia stable, hemoglobin 11.5, 11.6 Hyponatremia improved with IV fluids last recheck was 139 Transaminitis AST 44 ALT 66-avoid hepatotoxic medication Doppler ultrasound negative for DVT Prominent left groin lymph nodes, favored to be reactive/inflammatory Continue home medicines as previously prescribed GOAL: Clear understanding of disease process INSTRUCTIONS: Physician Discharge Instructions: -Follow-up with PCP in 1 to 2 weeks -Please call Dr. Carr at [phone] if any questions regarding hospital stay -Please call nursing station at [phone] if any nursing or medication questions -Return to the emergency room if symptoms worsen Diet: ADA, low sodium Activity: Fall precautions Vital Signs/Physical Exam: Temp Pulse Resp BP Pulse Ox 98.3 F 88 16 143/71 H 95 10/31/23 08:00 10/31/23 08:00 10/31/23 08:00 10/31/23 08:00 10/31/23 08:00 Laboratory Data at Discharge: WBC 7.40 thou/uL (4.3-10.9) 10/31/23 06:25 Hgb 11.6 g/dL (13.6-17.9) L 10/31/23 06:25 Hct 35.4 % (39.6-49.0) L 10/31/23 06:25 Plt Count 286 thou/uL (152-406) 10/31/23 06:25 PT 14.2 SECONDS (9.5-12.5) H 10/28/23 05:30 INR 1.30 10/28/23 05:30 APTT 32.4 SECONDS (24.3-36.9) 10/28/23 05:30 Sodium 139 mEq/L (136-145) 10/31/23 06:25 Potassium 3.5 mEq/L (3.5-5.1) 10/31/23 06:25 BUN 5 mg/dL (7-18) L 10/31/23 06:25 Creatinine 0.78 mg/dL (0.70-1.30) 10/31/23 06:25 Glucose 106 mg/dL (74-106) 10/31/23 06:25 Phosphorus 3.0 mg/dL (2.5-4.9) 10/31/23 06:25 Magnesium 1.9 mg/dL (1.6-2.4) 10/31/23 06:25 Total Bilirubin 0.4 mg/dL (0.2-1.0) 10/31/23 06:25 AST 47 U/L (15-37) H 10/31/23 06:25 ALT 90 U/L (16-61) H 10/31/23 06:25 Alkaline Phosphatase 72 U/L (45-117) 10/31/23 06:25 Triglycerides 73 mg/dL (<150) 10/29/23 06:28 Cholesterol 138 mg/dL (<200) 10/29/23 06:28 HDL Cholesterol 49 mg/dL (40-60) 10/29/23 06:28 Cholesterol/HDL Ratio 2.82 10/29/23 06:28 Home Medications: Acidophilus/Bifido Longum [Lactobacillus Capsule] 16 mg PO BID 15 Days #30 tab 10/31/23 Ciprofloxacin HCl [Cipro] 500 mg PO BID 7 Days #14 tab 10/31/23 Furosemide [Lasix] 20 mg PO DAILY AT SUPPER #3 tab 10/31/23 Potassium Chloride 10 meq PO DAILY #3 tab 10/31/23 Smz./Tmp. [Bactrim Ds 800 MG/160 MG] 1 tab PO BID #14 tab 10/31/23 Tramadol HCl [Ultram] 50 mg PO BID PRN 7 Days #15 tab 10/31/23 New Medications: Smz./Tmp. [Bactrim Ds 800 MG/160 MG] 1 tab PO BID #14 tab Ciprofloxacin HCl [Cipro] 500 mg PO BID 7 Days #14 tab Acidophilus/Bifido Longum [Lactobacillus Capsule] 16 mg PO BID 15 Days #30 tab Furosemide [Lasix] 20 mg PO DAILY AT SUPPER #3 tab Potassium Chloride 10 meq PO DAILY #3 tab Tramadol HCl [Ultram] 50 mg PO BID PRN 7 Days #15 tab PRN Reason: Pain Scale 2-4 (Mild) Physician Discharge Instructions: 33 year-old male patient presented with left lower extremity pain and swelling. Was noted to have left lower extremity cellulitis. Condition improved with IV antibiotics, as needed analgesics. Patient tolerating diet, stable for discharge to home with follow-up appointment with primary care physician in 1 to 2 weeks PROBLEM: Left lower extremity failure treated with IV antibiotic inpatient Hyponatremia treated with IV fluids improved Obesity educated on weight loss Transaminitis Rad/Lab/Micro: Leukocytosis secondary to left lower extremity cellulitis improved with IV antibiotic Microcytic anemia stable, hemoglobin 11.5, 11.6 Hyponatremia improved with IV fluids last recheck was 139 Transaminitis AST 44 ALT 66 Doppler ultrasound negative for DVT Prominent left groin lymph nodes, favored to be reactive/inflammatory Blood cultures x 2 negative Continue home medicines as previously prescribed GOAL: Clear understanding of disease process INSTRUCTIONS: Physician Discharge Instructions: -Follow-up with PCP in 1 to 2 weeks -Please call Dr. Carr at [phone] if any questions regarding hospital stay -Please call nursing station at [phone] if any nursing or medication questions -Return to the emergency room if symptoms worsen Diet: AHA Activity: Fall precautions Followup: NONE,NONE [UNKNOWN] - Annette Singh FNP [OUTSIDE PHYSICIAN] - Time spent managing pt's care (in minutes): 55
[2023-10-31] MEDS: POTASSIUM CL SA 10 MEQ TAB PO ONE (09:27)
[2023-10-31] MEDS: METHYLPREDNISOLONE 125 MG INJ IV ONE ×2 (10:45→13:49)
[2023-10-31] MEDS: ALBUMIN HUMAN 25% 50 ML IV ONE ×2 (10:45→13:49)
[2023-10-31 12:15] VITALS: BP 116/59; TEMP 98
--- NOTE | 2023-10-31 13:28 | EKG ---
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
[2023-10-31] MEDS: FUROSEMIDE 20 MG/ 2ML VIAL IV SCH (14:26)
== END 2023-10-31 15:23 | disposition home or self-care (01) | DRG 872 ==
LOC: ER 05:08 → 2ND 06:55
PROVIDERS: ADMIT Hospitalist; ATTEND Hospitalist
DX: A41.9 Sepsis, unspecified organism (principal); L03.116 Cellulitis of left lower limb; E87.1 Hypo-osmolality and hyponatremia; Z68.41 Body mass index [BMI] 40.0-44.9, adult; E66.9 Obesity, unspecified; I10 Essential (primary) hypertension; D50.9 Iron deficiency anemia, unspecified; R74.01 Elevation of levels of liver transaminase levels; Z79.899 Other long term (current) drug therapy
CPT/HCPCS: 36415; 80053; 80061; 80202; 81003; 83605; 83735; 84100; 84132; 85025; 85610; 85730; 87040; 93005; 93971; 96361; 96374; 99284; J0692; J1650; J1940; J2919; J7030; J7040; J7050; P9047